=== PATIENT | female | born 1960 | race Caucasian/White ===

== ENCOUNTER 2016-10-19 01:03 | Inpatient (IN) | payer OTHER ==
--- NOTE | 2016-10-19 01:21 | ED ---
Overdose HPI - General Stated Complaint: Overdose Time Seen by Provider: 10/19/16 01:10 Source: patient, family Limitations: altered mental status - History of Present Illness Initial Comments: This patient is a 56-year-old woman who presents to be evaluated after she took an overdose at home. The patient is able to give some history but appears intoxicated. Patient states she had not been with her son and was feeling extremely depressed. She has history of previous suicide attempt. She states that she took all of her Seroquel, however we are presented with a bottle for bupropion. The patient also admits to drinking alcohol. The overdose occurred about 3 hours ago. MD Complaint: intentional overdose -: hour(s) Intent: suicide attempt How Overdose Was Discovered: family/friend present at time Context: Intentional Overdose: relationship problems Associated Symptoms: depression Treatments Prior to Arrival: none - Related Data Home Medications Medication Instructions Recorded Confirmed Gabapentin [Neurontin] 600 mg PO TID 10/19/16 10/21/16 QUEtiapine [SEROquel] 100 mg PO HS 10/19/16 10/21/16 Venlafaxine HCl ER [Effexor XR] 150 mg PO DAILY 10/19/16 10/21/16 Allergies Allergy/AdvReac Type Severity Reaction Status Date / Time No Known Allergies Allergy Verified 10/19/16 01:19 Review of Systems ROS Statement: Those systems with pertinent positive or pertinent negative responses have been documented in the HPI. ROS Other: All systems not noted in ROS Statement are negative. Limitations: ROS unobtainable due to patients medical condition Constitutional: Denies: fever Eyes: Denies: vision change Respiratory: Denies: cough, dyspnea Cardiovascular: Denies: chest pain Gastrointestinal: Denies: abdominal pain, vomiting Neurological: Denies: headache Past Medical History Additional Past Medical History / Comment(s): gastric ulcer, back pain History of Any Multi-Drug Resistant Organisms: None Reported Past Surgical History: Adenoidectomy, Back Surgery, Hernia Repair, Tonsillectomy , Tubal Ligation Additional Past Surgical History / Comment(s): Elena en Y for ulcer disease, nerve stimulator - since removed Past Anesthesia/Blood Transfusion Reactions: No Reported Reaction Past Psychological History: No Psychological Hx Reported Smoking Status: Current every day smoker Past Alcohol Use History: None Reported Past Drug Use History: None Reported General Exam General appearance: appears intoxicated Head exam: Present: atraumatic, normocephalic Eye exam: Present: EOMI, nystagmus ENT exam: Present: mucous membranes dry Neck exam: Present: normal inspection, full ROM. Absent: tenderness Respiratory exam: Present: normal lung sounds bilaterally. Absent: respiratory distress, wheezes, rales, rhonchi, stridor Cardiovascular Exam: Present: regular rate, normal rhythm, normal heart sounds. Absent: systolic murmur, diastolic murmur, rubs, gallop GI/Abdominal exam: Present: soft, hypoactive bowel sounds. Absent: distended, tenderness, guarding, rebound, mass Extremities exam: Present: normal inspection, normal capillary refill. Absent: pedal edema, calf tenderness Back exam: Present: normal inspection. Absent: CVA tenderness (R), CVA tenderness (L) Neurological exam: Present: alert, oriented X3. Absent: motor sensory deficit Skin exam: Present: warm, dry, intact, normal color. Absent: rash Course Vital Signs 10/19/16 10/19/16 10/19/16 01:10 01:24 02:19 Temperature 96.9 F L Pulse Rate 83 70 79 Respiratory 12 18 20 Rate Blood Pressure 68/37 77/47 83/45 O2 Sat by Pulse 89 L 97 100 Oximetry 10/19/16 10/19/16 10/19/16 02:51 03:56 04:17 Temperature Pulse Rate 79 67 75 Respiratory 18 18 18 Rate Blood Pressure 101/55 102/56 103/69 O2 Sat by Pulse 99 97 97 Oximetry 10/19/16 10/19/16 10/19/16 05:14 06:14 06:52 Temperature Pulse Rate 86 86 94 Respiratory 18 18 18 Rate Blood Pressure 92/54 107/60 93/50 O2 Sat by Pulse 97 96 97 Oximetry 10/19/16 10/19/16 07:13 07:51 Temperature 96.7 F L 97.0 F L Pulse Rate 97 92 Respiratory 18 18 Rate Blood Pressure 102/54 106/58 O2 Sat by Pulse 90 L 96 Oximetry - Reevaluation(s) Reevaluation #1: 10/19/16 05:57 I discussed the patient's repeat EKG with poison control. The patient's QRS duration has increased from 112-116 ms, which they state is insignificant. The QTC has increased from 497 ms to 524 ms. The patient will be given calcium and magnesium for this. Medical Decision Making - Lab Data Result diagrams: 10/20/16 07:00 10/20/16 07:00 Lab Results 10/19/16 10/19/16 10/19/16 Range/Units 01:15 01:15 01:22 WBC 8.8 (3.8-10.6) k/uL RBC 4.74 (3.80-5.40) m/uL Hgb 13.1 (11.4-16.0) gm/dL Hct 38.8 (34.0-46.0) % MCV 81.9 (80.0-100.0) fL MCH 27.6 (25.0-35.0) pg MCHC 33.7 (31.0-37.0) g/dL RDW 13.6 (11.5-15.5) % Plt Count 292 (150-450) k/uL Neutrophils % 44 % Lymphocytes % 45 % Monocytes % 5 % Eosinophils % 2 % Basophils % 1 % Neutrophils # 3.9 (1.3-7.7) k/uL Lymphocytes # 3.9 (1.0-4.8) k/uL Monocytes # 0.5 (0-1.0) k/uL Eosinophils # 0.2 (0-0.7) k/uL Basophils # 0.1 (0-0.2) k/uL Sodium 138 (137-145) mmol/L Potassium 4.3 (3.5-5.1) mmol/L Chloride 109 H (98-107) mmol/L Carbon Dioxide 16 L (22-30) mmol/L Anion Gap 13 mmol/L BUN 23 H (7-17) mg/dL Creatinine 0.83 (0.52-1.04) mg/dL Est GFR (MDRD) Af Amer >60 (>60 ml/min/1.73 sqM) Est GFR (MDRD) Non-Af >60 (>60 ml/min/1.73 sqM) Glucose 103 H (74-99) mg/dL Plasma Lactic Acid Rene (0.7-2.0) mmol/L Calcium 9.2 (8.4-10.2) mg/dL Magnesium (1.6-2.3) mg/dL Total Bilirubin 0.6 (0.2-1.3) mg/dL AST 27 (14-36) U/L ALT 20 (9-52) U/L Alkaline Phosphatase 114 (38-126) U/L Total Protein 6.9 (6.3-8.2) g/dL Albumin 4.0 (3.5-5.0) g/dL Urine Color Colorless Urine Appearance Clear (Clear) Urine pH 5.0 (5.0-8.0) Ur Specific [place] 1.003 (1.001-1.035) Urine Protein Negative (Negative) Urine Glucose (UA) Negative (Negative) Urine Ketones Negative (Negative) Urine Blood Negative (Negative) Urine Nitrite Negative (Negative) Urine Bilirubin Negative (Negative) Urine Urobilinogen <2.0 (<2.0) mg/dL Ur Leukocyte Esterase Negative (Negative) Salicylates <1.0 mg/dL Urine Opiates Screen Not Detected (NotDetected) Ur Oxycodone Screen Not Detected (NotDetected) Urine Methadone Screen Not Detected (NotDetected) Ur Propoxyphene Screen Not Detected (NotDetected) Acetaminophen <10.0 ug/mL Ur Barbiturates Screen Not Detected (NotDetected) U Tricyclic Antidepress Not Detected (NotDetected) Ur Phencyclidine Scrn Not Detected (NotDetected) Ur Amphetamines Screen Not Detected (NotDetected) U Methamphetamines Scrn Not Detected (NotDetected) U Benzodiazepines Scrn Not Detected (NotDetected) Urine Cocaine Screen Not Detected (NotDetected) U Marijuana (THC) Screen Not Detected (NotDetected) Serum Alcohol 209 mg/dL 10/19/16 10/19/16 10/19/16 Range/Units 01:34 04:35 04:35 WBC (3.8-10.6) k/uL RBC (3.80-5.40) m/uL Hgb (11.4-16.0) gm/dL Hct (34.0-46.0) % MCV (80.0-100.0) fL MCH (25.0-35.0) pg MCHC (31.0-37.0) g/dL RDW (11.5-15.5) % Plt Count (150-450) k/uL Neutrophils % % Lymphocytes % % Monocytes % % Eosinophils % % Basophils % % Neutrophils # (1.3-7.7) k/uL Lymphocytes # (1.0-4.8) k/uL Monocytes # (0-1.0) k/uL Eosinophils # (0-0.7) k/uL Basophils # (0-0.2) k/uL Sodium 144 (137-145) mmol/L Potassium 4.1 (3.5-5.1) mmol/L Chloride 116 H (98-107) mmol/L Carbon Dioxide 20 L (22-30) mmol/L Anion Gap 8 mmol/L BUN 20 H (7-17) mg/dL Creatinine 0.73 (0.52-1.04) mg/dL Est GFR (MDRD) Af Amer >60 (>60 ml/min/1.73 sqM) Est GFR (MDRD) Non-Af >60 (>60 ml/min/1.73 sqM) Glucose 89 (74-99) mg/dL Plasma Lactic Acid Rene 2.2 H* 1.9 (0.7-2.0) mmol/L Calcium 8.3 L (8.4-10.2) mg/dL Magnesium 1.9 (1.6-2.3) mg/dL Total Bilirubin 0.5 (0.2-1.3) mg/dL AST 22 (14-36) U/L ALT 23 (9-52) U/L Alkaline Phosphatase 98 (38-126) U/L Total Protein 6.0 L (6.3-8.2) g/dL Albumin 3.4 L (3.5-5.0) g/dL Urine Color Urine Appearance (Clear) Urine pH (5.0-8.0) Ur Specific [place] (1.001-1.035) Urine Protein (Negative) Urine Glucose (UA) (Negative) Urine Ketones (Negative) Urine Blood (Negative) Urine Nitrite (Negative) Urine Bilirubin (Negative) Urine Urobilinogen (<2.0) mg/dL Ur Leukocyte Esterase (Negative) Salicylates mg/dL Urine Opiates Screen (NotDetected) Ur Oxycodone Screen (NotDetected) Urine Methadone Screen (NotDetected) Ur Propoxyphene Screen (NotDetected) Acetaminophen ug/mL Ur Barbiturates Screen (NotDetected) U Tricyclic Antidepress (NotDetected) Ur Phencyclidine Scrn (NotDetected) Ur Amphetamines Screen (NotDetected) U Methamphetamines Scrn (NotDetected) U Benzodiazepines Scrn (NotDetected) Urine Cocaine Screen (NotDetected) U Marijuana (THC) Screen (NotDetected) Serum Alcohol mg/dL - EKG Data -: EKG Interpreted by Me EKG shows normal: sinus rhythm, axis, intervals (Normal), QRS complexes (There is a right bundle branch block pattern), ST-T waves (Normal) Rate: normal (Rate 82 bpm) Disposition Clinical Impression: Drug overdose, intentional, Altered mental status, Alcohol intoxication delirium, Depression Disposition: ADMITTED IP TO THIS [facility] Condition: Serious
[2016-10-19] MEDS ORDERED: SODIUM CHLORIDE 0.9% 1,000 ML IV ONE ×2 (01:26→04:04)
[2016-10-19 01:31] LABS: Appearance,Urine Clear (Clear); Bilirubin,Urine Negative (Negative); Glucose,Urine (UA) Negative (Negative); Ketones,Urine Negative (Negative); Leukocyte Esterase,Urine Negative (Negative); Nitrite,Urine Negative (Negative); Protein,Urine Negative (Negative); Specific Gravity,Urine 1.003 (1.001-1.035); UA Billing (MACRO vs. MICRO) CHEM; Urobilinogen,Urine <2.0 mg/dL (<2.0)
[2016-10-19 01:31] LABS: Basophils # (A) 0.1 k/uL (0-0.2); Basophils % (A) 1 %; CH 26.9; Eosinophils # (A) 0.2 k/uL (0-0.7); Eosinophils % (A) 2 %; HCT 38.8 % (34.0-46.0); HDW 2.28; HGB 13.1 gm/dL (11.4-16.0); Luc # (Auto) 0.28; Luc % (Auto) 3; Lymphocytes # (A) 3.9 k/uL (1.0-4.8); Lymphocytes % (A) 45 %; MCH 27.6 pg (25.0-35.0); MCHC 33.7 g/dL (31.0-37.0); MCV 81.9 fL (80.0-100.0); Mean Platelet Volume 6.5; Monocytes # (A) 0.5 k/uL (0-1.0); Monocytes % (A) 5 %; Neutrophils # (A) 3.9 k/uL (1.3-7.7); Neutrophils % (A) 44 %; RBC 4.74 m/uL (3.80-5.40); RDW 13.6 % (11.5-15.5); WBC 8.8 k/uL (3.8-10.6); WBC (Perox) 8.79
[2016-10-19 01:47] LABS: ALT 20 U/L (9-52); AST 27 U/L (14-36); Acetaminophen <10.0 ug/mL; Alkaline Phosphatase 114 U/L (38-126); Anion Gap 13 mmol/L; Blood Urea Nitrogen 23 mg/dL (7-17); Calcium 9.2 mg/dL (8.4-10.2); Carbon Dioxide 16 mmol/L (22-30); Chloride 109 mmol/L (98-107); Glucose 103 mg/dL (74-99); Non-African American GFR(MDRD) >60 (>60 ml/min/1.73 sqM); Potassium 4.3 mmol/L (3.5-5.1); Salicylate <1.0 mg/dL; Sodium 138 mmol/L (137-145); Total Bilirubin 0.6 mg/dL (0.2-1.3); Total Protein 6.9 g/dL (6.3-8.2)
[2016-10-19 01:51] LABS: Alcohol 209 mg/dL
--- NOTE | 2016-10-19 02:03 | XR ---
EXAM: XR Chest, 1 View CLINICAL HISTORY: Reason: Mental status change TECHNIQUE: Frontal view of the chest. COMPARISON: No relevant prior studies available. FINDINGS: Lungs: Unremarkable. No consolidation. Pleural space: Unremarkable. No pneumothorax. Heart: Unremarkable. No cardiomegaly. Mediastinum: Unremarkable. Bones/joints: Unremarkable. IMPRESSION: No acute findings
[2016-10-19 05:01] LABS: ALT 23 U/L (9-52); AST 22 U/L (14-36); Alkaline Phosphatase 98 U/L (38-126); Anion Gap 8 mmol/L; Blood Urea Nitrogen 20 mg/dL (7-17); Calcium 8.3 mg/dL (8.4-10.2); Carbon Dioxide 20 mmol/L (22-30); Chloride 116 mmol/L (98-107); Glucose 89 mg/dL (74-99); Magnesium 1.9 mg/dL (1.6-2.3); Non-African American GFR(MDRD) >60 (>60 ml/min/1.73 sqM); Potassium 4.1 mmol/L (3.5-5.1); Sodium 144 mmol/L (137-145); Total Bilirubin 0.5 mg/dL (0.2-1.3)
[2016-10-19] MEDS ORDERED: CALCIUM GLUCONATE 1,000 MG in SODIUM CHLORIDE 0.9% 100 ML IVPB ONE (05:56)
[2016-10-19] MEDS: MAGNESIUM SULFATE-D5W PMX 1 GM in DEXTROSE/WATER 1 100ML.BAG IVPB SCH ×2 (06:23→07:26)
[2016-10-19] MEDS ORDERED: NALOXONE 0.4 MG/ML 1 ML VIAL IV PRN (06:55)
[2016-10-19 08:11] LABS: Glucose,Whole Blood 95 mg/dL (75-99)
[2016-10-19] MEDS ORDERED: LORazepam 2 MG/ML SYRINGE IV PRN (09:49)
[2016-10-19] MEDS ORDERED: SODIUM CHLORIDE 0.9% 1,000 ML IV SCH (10:00)
[2016-10-19] MEDS: PANTOPRAZOLE 40 MG/10 ML VIAL IVP SCH (10:37)
[2016-10-19] MEDS: ENOXAPARIN 40 MG/0.4 ML SYRINGE SQ SCH (10:38)
[2016-10-19 12:03] VITALS: BMI 30.1
--- NOTE | 2016-10-19 14:42 | P.CNPUL ---
History of Present Illness Consult date: 10/19/16 Requesting physician: Gillian Street Reason for consult: other (Drug overdose) Chief complaint: Altered mental status History of present illness: This is a 56-year-old female with history of depression, chronic back pain, gastric ulcer disease, previous gastric surgery for ulcer disease, patient was brought into the ER after she took an overdose of Seroquel and Wellbutrin at home. Exact amount is unknown, but apparently the patient had previous history of suicidal attempts, her overdose occurred apparently about 3 hours prior to arrival to ER. Patient was treated by the ER physician as per poison control recommendations, she did not require to be intubated in the ER, patient was also noted to have elevated alcohol level, alcohol intoxication was noted. Admitted to the ICU, and I was asked to see her on consultation. Patient was noted to be lethargic, able to protect her airways, arousable, in no form of respiratory distress. Review of Systems ROS unobtainable: due to mental status Past Medical History Additional Past Medical History / Comment(s): gastric ulcer, back pain History of Any Multi-Drug Resistant Organisms: None Reported Past Surgical History: Adenoidectomy, Back Surgery, Hernia Repair, Tonsillectomy , Tubal Ligation Additional Past Surgical History / Comment(s): Elena en Y for ulcer disease, nerve stimulator - since removed Past Anesthesia/Blood Transfusion Reactions: No Reported Reaction Past Psychological History: Depression Additional Psychological History / Comment(s): Pt has had 2 other suicide attempt (1969's & 2006)prior to this admission Smoking Status: Current every day smoker Past Alcohol Use History: Daily Additional Past Alcohol Use History / Comment(s): pt has been drinking 1 bottle of wine every day for 3mths Past Drug Use History: None Reported Medications and Allergies Home Medications Medication Instructions Recorded Confirmed Type Gabapentin [Neurontin] 300 mg PO PC-TID 10/19/16 10/19/16 History QUEtiapine [SEROquel] 100 mg PO HS 10/19/16 10/19/16 History Venlafaxine HCl ER [Effexor XR] 150 mg DAILY 10/19/16 10/19/16 History Allergies Allergy/AdvReac Type Severity Reaction Status Date / Time No Known Allergies Allergy Verified 10/19/16 01:19 Physical Exam Vitals: Vital Signs Temp Pulse Pulse Resp BP BP Pulse Ox 10/19/16 12:00 97.3 F L 88 18 98/66 100 10/19/16 11:00 88 18 97/63 100 10/19/16 10:03 87 20 95/62 10/19/16 09:08 83 116/55 10/19/16 09:00 20 10/19/16 08:10 97.5 F L 85 20 110/63 100 10/19/16 07:51 97.0 F L 92 18 106/58 96 10/19/16 07:13 96.7 F L 97 18 102/54 90 L 10/19/16 06:52 94 18 93/50 97 10/19/16 06:14 86 18 107/60 96 10/19/16 05:14 86 18 92/54 97 10/19/16 04:17 75 18 103/69 97 10/19/16 03:56 67 18 102/56 97 10/19/16 02:51 79 18 101/55 99 10/19/16 02:19 79 20 83/45 100 10/19/16 01:24 70 18 77/47 97 10/19/16 01:10 96.9 F L 83 12 68/37 89 L Intake and Output 10/18/16 10/19/16 10/19/16 22:59 06:59 14:59 Intake Total 525 Output Total 2350 Balance -1825 Intake: IV 50 NS 50 Intake, IV Titration 475 Amount Sodium Chloride 0.9% 1, 475 000 ml @ 125 mls/hr IV . Q8H [facility] Rx#:[id number] Output: Urine 2350 Other: Voiding Method Indwelling Catheter Weight 77.111 kg 77.111 kg Patient Weight 10/20/16 06:59 Weight 77.111 kg Physical Exam: Revealed a 56-year-old female, lethargic, in no form of respiratory distress. HEENT:[Neck is supple.] [No neck masses.] [No thyromegaly.] [No JVD.] Chest: [Clear throughout, no crackles, no rhonchi, no wheezes.] Cardiac Exam: [Normal S1 and S2, no S3 gallop, no murmur.] Abdomen: [Soft, nontender, no megaly, no rebound, no guarding, normal bowel sounds.] Extremities: [No clubbing, no edema, no cyanosis.] Neurological Exam: [Lethargic, arousable upon deep painful stimuli, confused, Results - Laboratory Findings CBC and BMP: 10/19/16 01:15 10/19/16 04:35 Abnormal lab findings: Abnormal Labs 10/19/16 10/19/16 10/19/16 01:15 01:34 04:35 Chloride 109 H 116 H Carbon Dioxide 16 L 20 L BUN 23 H 20 H Glucose 103 H Plasma Lactic Acid Rene 2.2 H* Calcium 8.3 L Total Protein 6.0 L Albumin 3.4 L - Diagnostic Findings Chest x-ray: image reviewed (No acute process was noted on the chest x-ray.) Assessment and Plan Plan: Impression: Acute multiple drug overdose and acute alcohol intoxication. History of depression and suspect suicidal attempt. Recommendation: Continue present treatment plan as per the recommendation of poison control, continue to monitor in the ICU, IV fluids were ordered, continue to monitor for cardiac arrhythmia, GI and DVT prophylaxis ordered, initiate psychiatric consultation upon awakening, keep on suicidal precautions. We'll continue to follow. Time with Patient: Greater than 30
[2016-10-19] MEDS: SODIUM CHLORIDE 0.45% 1,000 ML IV SCH (17:36)
--- NOTE | 2016-10-19 21:37 | HP ---
DATE OF ADMISSION: 10/19/2016 56-year-old admitted after overdose on Seroquel and Wellbutrin. Patient has multiple suicide attempts in the past. Patient overdosed around midnight today. Patient will be watched. Patient is awake, but does not answer much of my questions. Patient needs to be watched to QT prolongation which is not prolonged at this point of time and also seizures with the above mentioned medications. Patient probably can be transferred out of the ICU . Need to be monitored in a telemetry unit at this point of time. Patient is not in respiratory distress. Patient is awake, unable to, but not answering my questions. Review of systems unable to obtain. The patient is definitely confused. PAST MEDICAL HISTORY: Chronic back pain. Peptic ulcer disease . Adenoidectomy. Back surgery, hernia repair, tonsillectomy, tubal ligation surgery, depression. SOCIAL HISTORY: The patient does smoke. Drinks about one bottle of wine per day. Drug abuse history is unknown. It is not documented here. Home medications: 1. Gabapentin. 2. Seroquel. 3. Venlafaxine. ALLERGIES: No known drug allergies. PHYSICAL EXAMINATION: Temperature 97.5, pulse of 92, respiratory rate of 18, blood pressure is 106/58, saturating at 100% on 3 liters of O2 by nasal cannula. GENERAL: The patient is alert and unable to assess orientation. HEENT: Pupils are round and equally reacting to light. EOMI. No scleral icterus. No conjunctival pallor. Normocephalic, atraumatic. No pharyngeal erythema. No thyromegaly. CARDIOVASCULAR: S1 and S2 present. No murmurs, rubs, or gallops. PULMONARY: Chest is clear to auscultation, no wheezing or crackles. ABDOMEN: Soft, nontender, nondistended, normoactive bowel sounds. No palpable organomegaly. MUSCULOSKELETAL: No joint swelling or deformity. EXTREMITIES: No cyanosis, clubbing, or pedal edema. NEUROLOGICAL: Moving all 4 limbs, does not appear to have any focal neurological deficits, the patient is definitely confused. SKIN: No rashes. LABORATORY DATA: CBC and BMP are abnormal for elevated lactic acid of 2.2. Patient is on IV normal saline, although her chloride and sodium are elevated. Because of which I will switch her over to half normal saline. Serum alcohol level was elevated. ASSESSMENT AND PLAN: 1. Drug overdose. Multiple drug overdose and patient can probably can transferred out of ICU. The needs to be on court recording monitor. Needs to be watched for seizure precautions. 2. Suicidal ideation. 3. Depression. 4. Hyperchloremia I will switch IV fluids to half normal saline. 5. Patient needs to be on seizure precautions. 6. Need to monitor QT. 7. Alcohol abuse. We will watch for any withdrawals. Patient will be on Ativan, CIWA protocol if she has any withdrawals.
[2016-10-19 22:46] LABS: Glucose,Whole Blood 71 mg/dL (75-99)
[2016-10-20 00:18] LABS: Glucose,Whole Blood 72 mg/dL (75-99)
[2016-10-20] MEDS: SODIUM CHLORIDE 0.45% 1,000 ML IV SCH ×2 (03:45→18:16)
[2016-10-20 07:42] LABS: Basophils % (A) 0 %; CH 26.1; CHCM 30.6; Eosinophils # (A) 0.2 k/uL (0-0.7); Eosinophils % (A) 3 %; HCT 36.3 % (34.0-46.0); HDW 2.15; HGB 11.3 gm/dL (11.4-16.0); Hypochromasia Slight; Luc # (Auto) 0.08; Luc % (Auto) 1; Lymphocytes # (A) 1.1 k/uL (1.0-4.8); Lymphocytes % (A) 18 %; MCH 26.6 pg (25.0-35.0); MCV 85.6 fL (80.0-100.0); Mean Platelet Volume 6.5; Monocytes # (A) 0.4 k/uL (0-1.0); Monocytes % (A) 6 %; Neutrophils # (A) 4.4 k/uL (1.3-7.7); Neutrophils % (A) 72 %; RBC 4.24 m/uL (3.80-5.40); RDW 13.7 % (11.5-15.5); WBC 6.2 k/uL (3.8-10.6); WBC (Perox) 6.21
[2016-10-20 07:47] LABS: ALT 23 U/L (9-52); AST 22 U/L (14-36); Alkaline Phosphatase 88 U/L (38-126); Anion Gap 7 mmol/L; Blood Urea Nitrogen 8 mg/dL (7-17); Calcium 8.6 mg/dL (8.4-10.2); Carbon Dioxide 23 mmol/L (22-30); Chloride 111 mmol/L (98-107); Glucose 69 mg/dL (74-99); Magnesium 2.2 mg/dL (1.6-2.3); Non-African American GFR(MDRD) >60 (>60 ml/min/1.73 sqM); Potassium 4.2 mmol/L (3.5-5.1); Sodium 141 mmol/L (137-145); Total Bilirubin 0.8 mg/dL (0.2-1.3); Total Protein 6.1 g/dL (6.3-8.2)
[2016-10-20 08:08] LABS: Glucose,Whole Blood 70 mg/dL (75-99)
[2016-10-20] MEDS: ENOXAPARIN 40 MG/0.4 ML SYRINGE SQ SCH (08:51)
[2016-10-20] MEDS: PANTOPRAZOLE 40 MG/10 ML VIAL IVP SCH (08:51)
--- NOTE | 2016-10-20 11:36 | CT ---
EXAMINATION TYPE: CT brain wo con DATE OF EXAM: 10/20/2016 COMPARISON: Prior head CT 07/04/2012 HISTORY: Altered mental changes CT DLP: 961 mGycm Automated exposure control for dose reduction was used. FINDINGS: There is no acute intracranial hemorrhage, mass effect, or midline shift identified. The ventricles and sulci are within normal limits in size. The globes are intact and the visualized sinuses are rem arkable for inflammatory change in the sphenoid, bilateral maxillary sinuses, ethmoid air cells front al sinus, some inflammatory change present in the mastoids on the right.. IMPRESSION: No acute intracranial hemorrhage, mass effect, or midline shift is seen. Sinus disease.
[2016-10-20 12:29] LABS: Glucose,Whole Blood 72 mg/dL (75-99)
[2016-10-20] MEDS ORDERED: HALOPERIDOL LACTATE 5 MG/ML 1 ML VIAL IM PRN (13:17)
--- NOTE | 2016-10-20 13:36 | P.PN ---
Subjective Principal diagnosis: Multiple drugs overdose, suicidal attempt. This is a 56-year-old female with history of depression, chronic back pain, gastric ulcer disease, previous gastric surgery for ulcer disease, patient was brought into the ER after she took an overdose of Seroquel and Wellbutrin at home. Exact amount is unknown, but apparently the patient had previous history of suicidal attempts, her overdose occurred apparently about 3 hours prior to arrival to ER. Patient was treated by the ER physician as per poison control recommendations, she did not require to be intubated in the ER, patient was also noted to have elevated alcohol level, alcohol intoxication was noted. Admitted to the ICU, and I was asked to see her on consultation. Patient was noted to be lethargic, able to protect her airways, arousable, in no form of respiratory distress. Patient was reevaluated today on 10/20/2016, patient remains extremely confused, obtunded, and unable to follow any instructions, has been seems to be concerned about the fact that she is not showing improvement in her mental status over the last 24 hours. Patient was transferred out of the ICU yesterday by her admitting physician, she was hemodynamically stable, however I'm still concerned about her overall neurological status, and I recommended a CT of the brain I also recommended a neurological evaluation. CT showed no evidence of hemorrhage, no mass effect, and no midline shift. There is however some sinus disease involving maxillary sinuses and ethmoid sinuses. As well as sphenoid sinuses. Metabolically, all labs were noted to be normal including normal CBC and normal basic metabolic profile normal liver profile. Blood sugar seems to be running in the 70s all along. Objective - Vital Signs Vital signs: Vital Signs Temp 98.7 F 10/20/16 07:00 Pulse 84 10/20/16 07:00 Resp 19 10/20/16 07:00 BP 143/79 10/20/16 07:00 Pulse Ox 95 10/20/16 08:06 Intake & Output 10/19/16 10/20/16 10/20/16 18:59 06:59 18:59 Intake Total 1100 200 Output Total 3015 1979 Balance -1914 Weight 77.111 kg Intake: IV 50 NS 50 Intake, IV Titration 1050 200 Amount Sodium Chloride 0.45% 1, 200 200 000 ml @ 100 mls/hr IV . Q10H [facility] Rx#:[id number] Sodium Chloride 0.9% 1, 850 000 ml @ 125 mls/hr IV . Q8H [facility] Rx#:[id number] Oral 0 Output: Urine 3015 1980 Other: Voiding Method Indwelling Catheter Indwelling Catheter - Exam Physical Exam: Revealed a 56-year-old female, obtunded in no form of respiratory distress. HEENT:[Neck is supple.] [No neck masses.] [No thyromegaly.] [No JVD.] Chest: [Clear throughout, no crackles, no rhonchi, no wheezes.] Cardiac Exam: [Normal S1 and S2, no S3 gallop, no murmur.] Abdomen: [Soft, nontender, no megaly, no rebound, no guarding, normal bowel sounds.] Extremities: [No clubbing, no edema, no cyanosis.] Neurological Exam: [Obtunded, arousable upon deep painful stimuli, confused, unable to follow any simple instructions. - Labs CBC & Chem 7: 10/20/16 07:00 10/20/16 07:00 Labs: Abnormal Lab Results - Last 24 Hours (Table) 10/19/16 10/20/16 10/20/16 Range/Units 22:43 00:15 07:00 Hgb 11.3 L (11.4-16.0) gm/dL Chloride (98-107) mmol/L Glucose (74-99) mg/dL POC Glucose (mg/dL) 71 L 72 L (75-99) mg/dL Total Protein (6.3-8.2) g/dL Albumin (3.5-5.0) g/dL 10/20/16 10/20/16 10/20/16 Range/Units 07:00 08:06 12:26 Hgb (11.4-16.0) gm/dL Chloride 111 H (98-107) mmol/L Glucose 69 L (74-99) mg/dL POC Glucose (mg/dL) 70 L 72 L (75-99) mg/dL Total Protein 6.1 L (6.3-8.2) g/dL Albumin 3.4 L (3.5-5.0) g/dL Assessment and Plan Plan: Impression: Acute multiple drug overdose and acute alcohol intoxication. Acute metabolic encephalopathy, rule out CVA, hence CT of the brain was ordered , and showed no evidence of CVA. Neurological consultation is pending. History of depression and suspect suicidal attempt. Patient will be seen by psychiatry on consultation hopefully today. However her mental status is poor to have appropriate psych consultation at this point. Recommendation: Continue present treatment plan , neurologic consultation was initiated, CT of the brain was ordered, will follow on when necessary basis. Discussed her condition with at bedside. Time with Patient: Less than 30
--- NOTE | 2016-10-20 13:58 | P.CN ---
Psychiatric Consult - . Consult date: 10/20/16 Consult:: I reviewed the medical record and attempted to interview Ms. Clifton. She was unresponsive. Her was at the bedside and stated that she told him, and this admission, that she had overdosed with Seroquel. He stated she has a history of depression and attempted suicide once before. He believes she is more distressed over conflicts with their son. I was unable to complete a full psychiatric assessment. Please reconsult when she is medically stable. 10/20/16 13:56
--- NOTE | 2016-10-20 15:15 | P.CNNES ---
History of Present Illness Consult date: 10/20/16 History of Present Illness: The patient is a 56-year-old right-handed white female was admitted to the hospital on 10/19/2016 with drug overdose. She was in the ICU and transferred to regular floor with telemetry monitoring. History is obtained from the patient's was at her bedside. He reports that patient has been feeling very depressed. She has a history of depression and previous suicide attempts. On Thursday evening she overdosed and told her that she had taken [address] On her way to the hospital she grabbed also an empty Wellbutrin bottle. Patient has been lethargic lethargic and nonverbal. She was transferred out of the ICU yesterday. Patient is awake but unable to respond to any verbal questioning or follow any commands. Patient 's reports that she has also been drinking over 1 bottle of wine a day for the last several weeks. Neurology is requested to see the patient today regarding altered mental status. Review of Systems ROS unobtainable: due to mental status Past Medical History Additional Past Medical History / Comment(s): gastric ulcer, back pain History of Any Multi-Drug Resistant Organisms: None Reported Past Surgical History: Adenoidectomy, Back Surgery, Hernia Repair, Tonsillectomy , Tubal Ligation Additional Past Surgical History / Comment(s): Elena en Y for ulcer disease, nerve stimulator - since removed Past Anesthesia/Blood Transfusion Reactions: No Reported Reaction Past Psychological History: Depression Additional Psychological History / Comment(s): Pt has had 2 other suicide attempt (1969's & 2006)prior to this admission Smoking Status: Current every day smoker Past Alcohol Use History: Daily Additional Past Alcohol Use History / Comment(s): pt has been drinking 1 bottle of wine every day for 3mths Past Drug Use History: None Reported Medications and Allergies Home Medications Medication Instructions Recorded Confirmed Type Gabapentin [Neurontin] 300 mg PO PC-TID 10/19/16 10/19/16 History QUEtiapine [SEROquel] 100 mg PO HS 10/19/16 10/19/16 History Venlafaxine HCl ER [Effexor XR] 150 mg DAILY 10/19/16 10/19/16 History Allergies Allergy/AdvReac Type Severity Reaction Status Date / Time No Known Allergies Allergy Verified 10/19/16 01:19 Physical Examination - Vital Signs Vital Signs: Vital Signs Temp Pulse Pulse Pulse Resp BP BP 10/20/16 08:06 10/20/16 07:00 98.7 F 84 19 143/79 10/20/16 02:09 98.2 F 80 20 135/91 10/19/16 23:45 98.5 F 86 20 105/68 10/19/16 21:25 98.3 F 82 20 150/89 10/19/16 20:30 87 21 117/65 10/19/16 20:00 97.7 F 84 140/81 10/19/16 19:30 92 144/74 10/19/16 19:18 92 144/74 10/19/16 19:00 89 18 143/76 10/19/16 18:00 92 18 142/67 10/19/16 17:00 88 20 125/79 10/19/16 16:00 97.5 F L 86 18 126/65 10/19/16 15:42 Pulse Ox 10/20/16 08:06 95 10/20/16 07:00 95 10/20/16 02:09 100 10/19/16 23:45 92 L 10/19/16 21:25 99 10/19/16 20:30 99 10/19/16 20:00 98 10/19/16 19:30 99 10/19/16 19:18 99 10/19/16 19:00 99 10/19/16 18:00 100 10/19/16 17:00 99 10/19/16 16:00 100 10/19/16 15:42 99 Intake and Output 10/20/16 10/20/16 10/20/16 06:59 14:59 22:59 Intake Total 0 Output Total 1700 Balance -1700 Intake: Oral 0 Output: Urine 1700 - Constitutional General appearance: average body habitus - Respiratory Respiratory: lungs clear - Cardiovascular Cardiovascular: regular rate - Neurologic Mental status the patient was awake and unresponsive to verbal stimuli. Her head was turned to the right and she did have some startle when approached but was nonverbal and did not follow any commands. Cranial nerve examination: face symmetric, tongue midline Detailed motor examination: grossly full strength in all extremities - Psychiatric Psychiatric: agitated Results - Laboratory Findings CBC and BMP: 10/20/16 07:00 10/20/16 07:00 Abnormal Lab Findings: Abnormal Labs 10/19/16 10/19/16 10/19/16 01:15 01:34 04:35 Hgb Chloride 109 H 116 H Carbon Dioxide 16 L 20 L BUN 23 H 20 H Glucose 103 H POC Glucose (mg/dL) Plasma Lactic Acid Rene 2.2 H* Calcium 8.3 L Total Protein 6.0 L Albumin 3.4 L 10/19/16 10/20/16 10/20/16 22:43 00:15 07:00 Hgb 11.3 L Chloride Carbon Dioxide BUN Glucose POC Glucose (mg/dL) 71 L 72 L Plasma Lactic Acid Rene Calcium Total Protein Albumin 10/20/16 10/20/16 10/20/16 07:00 08:06 12:26 Hgb Chloride 111 H Carbon Dioxide BUN Glucose 69 L POC Glucose (mg/dL) 70 L 72 L Plasma Lactic Acid Rene Calcium Total Protein 6.1 L Albumin 3.4 L Assessment and Plan (1) Altered mental status Status: Acute Code(s): R41.82 - ALTERED MENTAL STATUS, UNSPECIFIED (2) Drug overdose, intentional Status: Acute Code(s): T50.902A - POISONING BY UNSP DRUG/MEDS/BIOL SUBST, SELF -HARM, INIT (3) Depression Status: Acute Code(s): F32.9 - MAJOR DEPRESSIVE DISORDER, SINGLE EPISODE, UNSPECIFIED (4) Alcohol intoxication delirium Status: Acute Plan: The patient is a 56-year-old woman with depression who was admitted with suicide attempt. She had drug overdose with Seroquel and possible Wellbutrin as well. She was treated in the emergency room and transferred to ICU. Yesterday evening she was transferred out of ICU and neurology is requested to see the patient today regarding altered mental status. The patient is unable to verbalize or give any history. History is obtained from the patient's . The patient had a CT of the brain this morning which did not show any acute abnormality. Patient is being watched for QT prolongation. We will check EEG to rule out underlying seizure activity. Continue close monitoring. Condition guarded.
[2016-10-20 17:33] LABS: Glucose,Whole Blood 68 mg/dL (75-99)
[2016-10-20] MEDS ORDERED: DEXTROSE 10 % IN WATER 250 ML IV STA (18:27)
[2016-10-20 18:32] LABS: Glucose,Whole Blood 116 mg/dL (75-99)
[2016-10-20 21:07] LABS: Glucose,Whole Blood 71 mg/dL (75-99)
[2016-10-21] MEDS: SODIUM CHLORIDE 0.45% 1,000 ML IV SCH ×3 (00:19→21:33)
[2016-10-21 06:41] LABS: Glucose,Whole Blood 83 mg/dL (75-99)
--- NOTE | 2016-10-21 07:36 | PN ---
Patient is still nonverbal but arousable and awake, but excessively sleepy. Neurology was consulted because of these symptoms. CT of the head was obtained, which was negative. REVIEW OF SYSTEMS: Unable to obtain at this point of time. Medications were reviewed. PHYSICAL EXAMINATION: VITAL SIGNS: Temperature 98.2, pulse of 83, respiratory rate of 16, blood pressure is 131/101. Saturating at 98% on 2-L of O2 nasal cannula. GENERAL: Patient is arousable, unable to assess orientation, excessively sleepy, nonverbal at this point of time. HEENT: Pupils are round and equally reacting to light. EOMI. No scleral icterus. No conjunctival pallor. Normocephalic, atraumatic. No pharyngeal erythema. No thyromegaly. CARDIOVASCULAR: S1 and S2 present. No murmurs, rubs, or gallops. PULMONARY: Chest is clear to auscultation, no wheezing or crackles. ABDOMEN: Soft, nontender, nondistended, normoactive bowel sounds. No palpable organomegaly. MUSCULOSKELETAL: No joint swelling or deformity. EXTREMITIES: No cyanosis, clubbing, or pedal edema. NEUROLOGICAL: Moving all the 4 limbs and does not appear to have any focal deficit, appears to be confused, but mostly nonverbal and neurology is evaluating the patient. SKIN: No rashes. LABORATORY DATA: Hyperchloremia due to IV fluids. ASSESSMENT AND PLAN: 1. Drug overdose on multiple drugs. Will continue to monitor. 2. Toxic encephalopathy due to drug overdose on Seroquel and bupropion. Neurology is evaluating the patient because of her mental status issues. 3. Depression. 4. Hyperchloremia, which is improving at this point of time. Continue to monitor. 5. Acute alcohol abuse. Will monitor for alcohol withdrawal and patient will be on alcohol withdrawal percussions although patient does not have any such withdrawals at this point of time. Wellbutrin is probably not a great medication in alcoholics.
[2016-10-21] MEDS: PANTOPRAZOLE 40 MG/10 ML VIAL IVP SCH (08:54)
[2016-10-21] MEDS: ENOXAPARIN 40 MG/0.4 ML SYRINGE SQ SCH (08:54)
--- NOTE | 2016-10-21 10:24 | EEG ---
DATE OF SERVICE: 10/20/[address] Street. INTERPRETING PHYSICIAN: Dr. Rangel Simental. INDICATIONS FOR EXAMINATION: This patient is a 56-year-old female admitted with drug overdose. The patient remains obtunded and hard to arouse. AGE: 56Y EEG FINDINGS: A routine 21-channel, awake digital EEG recording was accomplished utilizing the 10 to 20 international system with bipolar and referential montages. The background activity in the most alert resting state consists of a low to medium amplitude, poorly developed and poorly sustained 5 to 6 Hz activity over the posterior head regions. This posterior rhythm attenuates minimally to eye opening. There is a small amount of low amplitude 18 to 20 Hz beta activity seen maximally over the anterior head regions. Muscle and movement artifact was observed on several occasions during the tracing. Hyperventilation was not performed. Photic stimulation at flash frequencies of 2 to 30 Hz produced a minimal occipital driving response. No epileptiform discharges were seen. IMPRESSION: This EEG is moderately abnormal in a diffuse fashion due to slowing of the EEG background. The EEG failed to reveal any focal, lateralized or epileptiform abnormalities. Clinical correlation is recommended.
--- NOTE | 2016-10-21 10:50 | P.CRDCN ---
History of Present Illness Consult date: 10/21/16 Chief complaint: Change in mental status History of present illness: This is a pleasant 56-year-old female patient with no prior cardiac history was admitted to the hospital with a change in mental status. The patient was admitted to the hospital after suicidal attempt using medications. The patient took Seroquel and her found an empty bottle at home. She had significant change in mental status which has been getting better over the last few days. Currently she still slightly confused. No symptoms of chest pain or discomfort or difficulty breathing. The patient is not aware of any prior cardiac history and never seen any tread builder in the past. She doesn't smoke though. We get involved in the care of the patient because of abnormal EKG. I reviewed the patient's EKG and that showed sinus rhythm with R BBB. I could not see any acute changes on the EKG. The QT interval seems to be within normal limits at this point. At this point, I would not recommend any further cardiac workup beside daily EKG on the patient. We'll continue monitor for prolonged QT. Continue monitoring the electrolytes. Replace any deficiencies in potassium and magnesium. Avoid any medication which can prolong the QT Past Medical History Additional Past Medical History / Comment(s): gastric ulcer, back pain History of Any Multi-Drug Resistant Organisms: None Reported Past Surgical History: Adenoidectomy, Back Surgery, Hernia Repair, Tonsillectomy , Tubal Ligation Additional Past Surgical History / Comment(s): Elena en Y for ulcer disease, nerve stimulator - since removed Past Anesthesia/Blood Transfusion Reactions: No Reported Reaction Past Psychological History: Depression Additional Psychological History / Comment(s): Pt has had 2 other suicide attempt ( & 2006)prior to this admission Smoking Status: Current every day smoker Past Alcohol Use History: Daily Additional Past Alcohol Use History / Comment(s): pt has been drinking 1 bottle of wine every day for 3mths Past Drug Use History: None Reported Medications and Allergies Home Medications Medication Instructions Recorded Confirmed Type Gabapentin [Neurontin] 300 mg PO PC-TID 10/19/16 10/19/16 History QUEtiapine [SEROquel] 100 mg PO HS 10/19/16 10/19/16 History Venlafaxine HCl ER [Effexor XR] 150 mg PO DAILY 10/19/16 10/21/16 History Allergies Allergy/AdvReac Type Severity Reaction Status Date / Time No Known Allergies Allergy Verified 10/19/16 01:19 Physical Exam Vitals: Vital Signs Temp Pulse Resp BP Pulse Ox 10/21/16 07:00 97.7 F 103 H 16 123/86 93 L 10/20/16 23:00 96.7 F L 76 20 150/84 98 10/20/16 16:00 16 10/20/16 15:00 98.2 F 83 16 131/101 98 Intake and Output 10/20/16 10/21/16 10/21/16 22:59 06:59 14:59 Intake Total 0 0 Output Total 1200 Balance 0 -1200 Intake: Oral 0 0 Output: Urine 1200 Other: Voiding Method Indwelling Catheter # Voids 0 0 # Bowel Movements 0 - Constitutional General appearance: no acute distress - Respiratory Respiratory: bilateral: CTA - Cardiovascular Rhythm: regular Heart sounds: normal: S1, S2 Results 10/20/16 07:00 10/20/16 07:00 Cardiac Enzymes 10/20/16 10/20/16 Range/Units 15:59 21:58 Troponin I <0.012 <0.012 (0.000-0.034) ng/mL Current Medications Generic Name Dose Route Start Last Admin Trade Name Freq PRN Reason Stop Dose Admin Enoxaparin Sodium 40 mg 10/19/16 10:00 10/21/16 08:54 Lovenox SQ 40 mg DAILY JONNATHAN Administration Haloperidol Lactate 3 mg 10/20/16 13:17 Haldol IM Q8HR PRN Agitation or Acute Psychosis Sodium Chloride 1,000 mls @ 100 mls/hr 10/19/16 16:30 10/21/16 00:19 Saline 0.45% IV 100 mls/hr .Q10H JONANTHAN Administration Naloxone HCl 0.2 mg 10/19/16 06:55 Narcan IV Q2M PRN Opioid Reversal Nicotine 1 patch 10/21/16 10:45 Habitrol 21mg/24hr Patch TRANSDERM DAILY JONNATHAN Pantoprazole Sodium 40 mg 10/19/16 10:00 10/21/16 08:54 Protonix IVP 40 mg DAILY JONNATHAN Administration Intake and Output 10/20/16 10/21/16 10/21/16 22:59 06:59 14:59 Intake Total 0 0 Output Total 1200 Balance 0 -1200 Intake: Oral 0 0 Output: Urine 1200 Other: Voiding Method Indwelling Catheter # Voids 0 0 # Bowel Movements 0 10/20/16 07:00 10/20/16 07:00 Assessment and Plan Plan: Assessment #1 suicidal attempt using Seroquel #2 change in mental status which has been better #3 significant history of smoking #4 depression Plan #1 continue monitoring the EKG for prolonged QT #2 monitor the electrolytes and replace any deficiencies in potassium and magnesium #3 avoid any medication which can prolonged QT #4 follow-up with the patient
[2016-10-21 11:30] LABS: Glucose,Whole Blood 77 mg/dL (75-99)
[2016-10-21] MEDS: NICOTINE 21MG/24HR PATCH TRANSDERM SCH (11:57)
--- NOTE | 2016-10-21 12:17 | P.PN ---
Subjective Principal diagnosis: Multiple drug overdose with suicide attempt. This is a 56-year-old female with history of depression, chronic back pain, gastric ulcer disease, previous gastric surgery for ulcer disease, patient was brought into the ER after she took an overdose of Seroquel and Wellbutrin at home. Exact amount is unknown, but apparently the patient had previous history of suicidal attempts, her overdose occurred apparently about 3 hours prior to arrival to ER. Patient was treated by the ER physician as per poison control recommendations, she did not require to be intubated in the ER, patient was also noted to have elevated alcohol level, alcohol intoxication was noted. Admitted to the ICU, and I was asked to see her on consultation. Patient was noted to be lethargic, able to protect her airways, arousable, in no form of respiratory distress. Patient was reevaluated today on 10/20/2016, patient remains extremely confused, obtunded, and unable to follow any instructions, has been seems to be concerned about the fact that she is not showing improvement in her mental status over the last 24 hours. Patient was transferred out of the ICU yesterday by her admitting physician, she was hemodynamically stable, however I'm still concerned about her overall neurological status, and I recommended a CT of the brain I also recommended a neurological evaluation. CT showed no evidence of hemorrhage, no mass effect, and no midline shift. There is however some sinus disease involving maxillary sinuses and ethmoid sinuses. As well as sphenoid sinuses. Metabolically, all labs were noted to be normal including normal CBC and normal basic metabolic profile normal liver profile. Blood sugar seems to be running in the 70s all along. The patient is seen again today 10/21/2016 in follow-up on the regular medical floor. She continues to have altered mental status, hallucinations with intermittent periods of lucidity. She has been maintaining good O2 saturations in the low 90s on room air. She's been afebrile. Hemodynamically stable. The patient's is at the bedside and states she had 2 previous suicide attempts most recently approximately 10 years ago. He states this is the most serious of the events thus far. Psychiatry is following as well. Objective - Vital Signs Vital signs: Vital Signs Temp 97.7 F 10/21/16 07:00 Pulse 103 H 10/21/16 07:00 Resp 16 10/21/16 07:00 BP 123/86 10/21/16 07:00 Pulse Ox 93 L 10/21/16 07:00 Intake & Output 10/20/16 10/21/16 10/21/16 18:59 06:59 18:59 Intake Total 0 Output Total 1600 1200 Balance -1600 -1200 Intake: Oral 0 Output: Urine 1600 1200 Other: Voiding Method Indwelling Catheter # Voids 0 # Bowel Movements 0 - Exam Physical Exam: Revealed a 56-year-old female, obtunded in no form of respiratory distress. HEENT:[Neck is supple.] [No neck masses.] [No thyromegaly.] [No JVD.] Chest: [Clear throughout, no crackles, no rhonchi, no wheezes.] Cardiac Exam: [Normal S1 and S2, no S3 gallop, no murmur.] Abdomen: [Soft, nontender, no megaly, no rebound, no guarding, normal bowel sounds.] Extremities: [No clubbing, no edema, no cyanosis.] Neurological Exam: [Obtunded, arousable upon deep painful stimuli, confused, unable to follow any simple instructions. - Labs CBC & Chem 7: 10/20/16 07:00 10/20/16 07:00 Labs: Abnormal Lab Results - Last 24 Hours (Table) 10/20/16 10/20/16 10/20/16 Range/Units 12:26 17:24 18:29 POC Glucose (mg/dL) 72 L 68 L 116 H (75-99) mg/dL 10/20/16 Range/Units 21:01 POC Glucose (mg/dL) 71 L (75-99) mg/dL Assessment and Plan Plan: Impression: Acute multiple drug overdose and acute alcohol intoxication. Acute metabolic encephalopathy, rule out CVA, hence CT of the brain was ordered , and showed no evidence of CVA. Neurological consultation is pending. History of depression and suspect suicidal attempt. Plan: Patient was seen and evaluated by Dr. Emerson. She is currently stable from the pulmonary and critical care standpoint. She still has episodes of altered mental status which is being followed by psychiatry. We will follow with the patient on as-needed basis.
--- NOTE | 2016-10-21 14:28 | P.CN ---
Psychiatric Consult - . Consult date: 10/21/16 Consult:: SUBJECTIVE: I reviewed the medical record and interviewed Ms. Clifton. She is pleasant on approach but was unable to explain the reason for her presentation to the hospital. OBJECTIVE: She presented as a disheveled appearing 56-year-old female who was resting comfortably in bed. She maintained contact her children difficulty concentrating and attending to the interview. She had difficulty organizing her thoughts. She was oriented to person, knew the month was September but thought the year was 1975. We completed the [facility] Orientation Memory Concentration test. Her total weighted error score was 26. In general, the higher the weighted error score greater than cognitive impairment. She knew the month but did not know the year. She was able to register the memory phrase "Cj Cano, [address] [place] [address]." She was able to count backwards from 20-1 but she several errors when attempting to name the months of the year in reverse order (beginning with April). She was unable to estimate the current time correctly (within 1 hour actual time). She was unable to remember the memory phrase after the above distraction exercise as. ASSESSMENT: She is a 56-year-old female who [facility] following an intentional overdose of prescription psychotropic medication. She is alert and responsive today but markedly confused. She shows impairments in attention, concentration and memory. PLAN: She is still recovering from the overdose and appears to have elements of a delirium. She remains inappropriate for transfer to psychiatric unit at this time. 10/21/16 14:22
[2016-10-21 17:04] LABS: Glucose,Whole Blood 73 mg/dL (75-99)
--- NOTE | 2016-10-21 21:30 | P.PN ---
Subjective Principal diagnosis: Overdose The patient 56-year-old woman admitted to the hospital on 10/19/2016 with intentional drug overdose and altered mental status. Today she is sleeping but easily arousable and alert when awakened. She is answering questions appropriately. She reports that she overdosed on Seroquel and does not think she took Wellbutrin. She has a history of depression and previous suicide attempts. She denies any headache or focal weakness or numbness. She has been in bed and has not had a chance to get up or walk. She denied any hallucinations today but states she did have some yesterday. Objective - Vital Signs Vital signs: Vital Signs Temp 99.4 F 10/21/16 17:54 Pulse 92 10/21/16 17:54 Resp 16 10/21/16 17:54 BP 105/80 10/21/16 17:54 Pulse Ox 96 10/21/16 17:54 Intake & Output 10/21/16 10/21/16 10/22/16 06:59 18:59 06:59 Intake Total 0 0 Output Total 1200 750 Balance -1200 -750 Intake: Oral 0 0 Output: Urine 1200 750 Other: Voiding Method Indwelling Catheter Indwelling Catheter # Voids 0 # Bowel Movements 0 - Constitutional General appearance: Present: cooperative - EENT Eyes: Present: PERRLA ENT: Present: hearing grossly normal - Respiratory Respiratory: bilateral: CTA - Cardiovascular Rhythm: regular - Neurologic Neurologic Comment(s): Status she was awake alert oriented to person place and time she thought it was October however and she thought it was the first or second of October. She was able to add serial sevens and subtract. She was able to spell world forward and backward. She was able to recall what she had for dinner. There is no a aphasia or dysarthria. She was able to give her home address and phone number Neurologic: Present: CNII-XII intact - Musculoskeletal Musculoskeletal: Present: strength equal bilaterally - Psychiatric Psychiatric: Present: A&O x's 3 - Labs CBC & Chem 7: 10/20/16 07:00 10/20/16 07:00 Labs: Abnormal Lab Results - Last 24 Hours (Table) 10/21/16 Range/Units 17:03 POC Glucose (mg/dL) 73 L (75-99) mg/dL Assessment and Plan (1) Altered mental status Status: Acute Code(s): R41.82 - ALTERED MENTAL STATUS, UNSPECIFIED (2) Drug overdose, intentional Status: Acute Code(s): T50.902A - POISONING BY UNSP DRUG/MEDS/BIOL SUBST, SELF -HARM, INIT (3) Depression Status: Acute Code(s): F32.9 - MAJOR DEPRESSIVE DISORDER, SINGLE EPISODE, UNSPECIFIED (4) Alcohol intoxication delirium Status: Acute Plan: The patient is a 56-year-old woman who was admitted to the hospital hospital with intentional drug overdose. The patient has had altered mental status and today she is doing much better. She is oriented 3. Patient denies any significant complaints. There are no lateralizing signs on her examination. Her EEG showed general slowing yesterday but no seizure activity. She had a CT of the brain which was unremarkable.
[2016-10-21 21:35] LABS: Glucose,Whole Blood 78 mg/dL (75-99)
[2016-10-22 07:11] LABS: Glucose,Whole Blood 78 mg/dL (75-99)
[2016-10-22 07:14] VITALS: RESP 20
--- NOTE | 2016-10-22 08:15 | P.PN ---
Subjective Date of service 10/21/2016 Personal being dictated for Dr. Lancaster Interval history: This is a 56-year-old female admitted with toxic encephalopathy secondary to drug overdose on multiple drugs including Seroquel and bupropion, acute alcohol abuse and multiple other medical issues. Suicide precautions maintained with sitter at bedside. Remains strong D, slurred speech , dozing off during conversations. Confused to place and time but recognizes significant other. Maintained on gentle IV fluid hydration. Currently nothing by mouth, diet initiated. Afebrile, T-max 99.4. Evaluated by a neurology with recommendations noted. No seizure activity reported. Evaluated by psychiatry and patient will be transferred to mental health unit. Objective - Vital Signs Vital signs: Vital Signs Temp 99.4 F 10/21/16 17:54 Pulse 92 10/21/16 17:54 Resp 16 10/21/16 17:54 BP 105/80 10/21/16 17:54 Pulse Ox 96 10/21/16 17:54 Intake & Output 10/21/16 10/21/16 10/22/16 06:59 18:59 06:59 Intake Total 0 0 Output Total 1200 750 Balance -1200 -750 Intake: Oral 0 0 Output: Urine 1200 750 Other: Voiding Method Indwelling Catheter Indwelling Catheter # Voids 0 # Bowel Movements 0 - Exam PHYSICAL EXAM: VITAL SIGNS: As above GENERAL: [Lying in bed, sleepy, confused] HEENT: [Pupils equal conjunctiva normal.] NECK: [Supple, no JVD] RESPIRATORY EFFORT:[ Normal] LUNGS: [Clear to auscultation, no wheezes rhonchi or crackles] CARDIOVASCULAR[ regular S1 and S2, no murmurs rubs or gallops, no edema] GI: [Abdomen soft, nontender, positive bowel sounds.] PSYCH: [Alert and oriented -1-2, as mentioned above disoriented to time and place but recognizes significant other, cooperative] NEURO: Moves all 4 extremities, no apparent focal deficits - Labs CBC & Chem 7: 10/20/16 07:00 10/20/16 07:00 Labs: Abnormal Lab Results - Last 24 Hours (Table) 10/20/16 10/21/16 Range/Units 21:01 17:03 POC Glucose (mg/dL) 71 L 73 L (75-99) mg/dL Assessment and Plan Plan: 1. [ Drug overdose on multiple drugs,]. 2. [ Toxic encephalopathy secondary to drug overdose on Seroquel and bupropion as well as acute alcohol abuse)]. 3. [ Depression]. 4. [ Hyperchloremia, improving]. Plan: Continue on current medication regime ,monitoring and symptomatic treatment. Maintain suicide precautions. Follow closely with both neurology and psychiatry. Patient to be discharged and transferred to mental health unit once more alert. Close monitoring of electrolytes with repeat labs ordered for a.m and significant other at bedside and updated on plan of care. The impression and plan of care has been dictated as directed. : I performed a H&P examination of this patient and discussed the same with the dictator. I agree with the dictator's note. Any additional findings/opinions/ etc. will be noted.
[2016-10-22] MEDS: ENOXAPARIN 40 MG/0.4 ML SYRINGE SQ SCH (09:17)
[2016-10-22] MEDS: PANTOPRAZOLE 40 MG/10 ML VIAL IVP SCH (09:17)
[2016-10-22] MEDS: NICOTINE 21MG/24HR PATCH TRANSDERM SCH ×2 (09:17→09:19)
--- NOTE | 2016-10-22 09:17 | P.CN ---
Psychiatric Consult - . Consult date: 10/22/16 Consult:: SUBJECTIVE: I reviewed the medical record and interviewed Ms. Clifton. Today, she was able to explain that she presented to Hospital because she took an overdose of medications. She alleged that she could not explain the reason for taking overdose and "does not remember her feelings" when she took the overdose. She talked about ongoing problems with her son and caring for his children. We talked about the severity of the overdose and I recommended to transfer to the psychiatric unit. She became quite distressed. She wished to be discharged from the medical unit and reestablish contact with her outpatient therapist at [facility]. I explained that due to the severity of her suicide attempt where recommending inpatient psychiatric treatment and that her would concur. OBJECTIVE: She presented as a casually groomed 56-year-old female who was sitting comfortably in bed. She made eye contact and tended to the interview. She had a blunted facial expression. She began crying as we discussed the suicide attempt and the recommendation for inpatient psychiatric treatment. She was alert and oriented to person, place and time. She showed slight psychomotor retardation but no abnormal involuntary movements. Her speech was spontaneous with normal rate, rhythm and volume. Her affect was depressed. She denied current suicidal ideation or wishes. She did not express ideas reference or paranoid ideation. Her thinking was concrete but her associations were coherent and logical. We completed the [facility] Orientation Memory and Concentration Test. Her total weighted error score was 4; in general, the higher the total weighted error score greater than cognitive impairment. She knew the month and year. She is able to estimate the time correctly within 1 hour actual time. She was able to register of memory phrase "Cj Cano, [address] [place] [id number]." She was able to count backwards from 20. She made one error when saying the months of the year in reverse order (starting with April). She made one year when when recalling the memory phrase after the destruction exercise was. ASSESSMENT: Her cognitive status is much improved from yesterday where she is fully alert and oriented. She is able to attend and concentrate. She minimizes severity of her suicide attempt and disagrees with our recommendations for inpatient psychiatric treatment. PLAN: Transferred to the psychiatric unit when medically stable. 10/22/16 09:09
[2016-10-22] MEDS: SODIUM CHLORIDE 0.45% 1,000 ML IV SCH ×2 (09:18→15:45)
[2016-10-22 09:43] LABS: Anion Gap 13 mmol/L; Blood Urea Nitrogen 11 mg/dL (7-17); Calcium 9.2 mg/dL (8.4-10.2); Carbon Dioxide 22 mmol/L (22-30); Chloride 106 mmol/L (98-107); Glucose 79 mg/dL (74-99); Non-African American GFR(MDRD) >60 (>60 ml/min/1.73 sqM); Potassium 4.4 mmol/L (3.5-5.1); Sodium 141 mmol/L (137-145)
[2016-10-22 09:44] LABS: Basophils % (A) 0 %; CH 26.3; CHCM 31.2; Eosinophils # (A) 0.1 k/uL (0-0.7); Eosinophils % (A) 2 %; HCT 40.7 % (34.0-46.0); HDW 2.15; HGB 12.9 gm/dL (11.4-16.0); Luc % (Auto) 2; Lymphocytes # (A) 1.1 k/uL (1.0-4.8); Lymphocytes % (A) 19 %; MCH 26.8 pg (25.0-35.0); MCHC 31.7 g/dL (31.0-37.0); MCV 84.8 fL (80.0-100.0); Mean Platelet Volume 6.6; Monocytes # (A) 0.3 k/uL (0-1.0); Monocytes % (A) 4 %; Neutrophils # (A) 4.3 k/uL (1.3-7.7); Neutrophils % (A) 73 %; RDW 13.8 % (11.5-15.5); WBC 5.9 k/uL (3.8-10.6); WBC (Perox) 6.06
--- NOTE | 2016-10-22 10:33 | P.PN ---
Subjective Principal diagnosis: Abnormal EKG This is a pleasant 56-year-old female patient with no prior cardiac history was admitted to the hospital with a change in mental status. The patient was admitted to the hospital after suicidal attempt using medications. The patient took Seroquel and her found an empty bottle at home. She had significant change in mental status which has been getting better over the last few days. Currently she still slightly confused. No symptoms of chest pain or discomfort or difficulty breathing. 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 She doesn't smoke though. We get involved in the care of the patient because of abnormal EKG. I reviewed the patient's EKG and that showed sinus rhythm with R BBB. I could not see any acute changes on the EKG. The QT interval seems to be within normal limits at this point. At this point, I am going to repeat the EKG today. If the EKG showed no changes compared to before the patient can be discharged home. Objective - Vital Signs Vital signs: Vital Signs Temp 98.8 F 10/22/16 07:00 Pulse 86 10/22/16 07:00 Resp 20 10/22/16 07:00 BP 122/79 10/22/16 07:00 Pulse Ox 94 L 10/22/16 07:00 Intake & Output 10/21/16 10/22/16 10/22/16 18:59 06:59 18:59 Intake Total 0 Output Total 750 1400 Balance -750 -1400 Intake: Oral 0 Output: Urine 750 1400 Other: Voiding Method Indwelling Catheter Indwelling Catheter # Voids 525 # Bowel Movements 0 - Constitutional General appearance: Present: no acute distress - Respiratory Respiratory: bilateral: CTA - Cardiovascular Rhythm: regular Heart sounds: normal: S1, S2 - Labs CBC & Chem 7: 10/22/16 08:48 10/22/16 08:48 Labs: Abnormal Lab Results - Last 24 Hours (Table) 10/21/16 Range/Units 17:03 POC Glucose (mg/dL) 73 L (75-99) mg/dL Assessment and Plan Plan: Assessment #1 suicidal attempt using Seroquel #2 change in mental status which has been better #3 significant history of smoking #4 depression Plan #1 repeat the EKG today #2 if the EKG showed no changes the patient can be discharged home
[2016-10-22 15:37] VITALS: BP 94/60; PULSE 89; TEMP 99.5
--- NOTE | 2016-10-22 19:15 | P.DS ---
Providers Date of admission: 10/19/16 06:55 Expected date of discharge: 10/22/16 Attending physician: Gillian Lancaster Consults: 10/19/16 06:55 Consult Physician Routine Consulting Provider: Cj Pat Consult Reason/Comments: Overdose Do you want consulting provider notified?: Yes 10/19/16 07:22 Consult Physician Urgent Consulting Provider: David Ewing Consult Reason/Comments: Overdose with mental status change Do you want consulting provider notified?: Already Contacted 10/20/16 10:29 Consult Physician Routine Consulting Provider: Francisca Simental Consult Reason/Comments: MENTAL STATUS CHANGE Do you want consulting provider notified?: Yes, Notify in am 10/20/16 18:42 Consult Physician Routine Consulting Provider: Jorge Rivera Consult Reason/Comments: EKG Changes post overdose Do you want consulting provider notified?: Yes Primary care physician: David Tamayomley [place] Hospital Course: Final Diagnoses: 1. [ Drug overdose on multiple drugs,]. 2. [ Toxic encephalopathy secondary to drug overdose on Seroquel and bupropion as well as acute alcohol abuse)]. 3. [ Depression]. 4. [ Hyperchloremia, improving]. Hospital course:This is a 56-year-old female admitted with toxic encephalopathy secondary to drug overdose on multiple drugs including Seroquel and bupropion, acute alcohol abuse and multiple other medical issues. Suicide precautions maintained with sitter at bedside. Gentle IV fluid hydration. Evaluated by cardiology, neurology & psychiatry. No seizure activity, no DTs. Cleared by all consults for discharge to mental health unit. Patient is being discharged to mental health unit in a stable condition with guarded prognosis. The impression and plan of care has been dictated as directed. : I performed a H&P examination of this patient and discussed the same with the dictator. I agree with the dictator's note. Any additional findings/opinions/ etc. will be noted. Patient Condition at Discharge: Serious Plan - Discharge Summary New Discharge Prescriptions: New Nicotine 21Mg/24Hr Patch [Habitrol] 1 patch TRANSDERM DAILY patch Pantoprazole Sodium [Protonix] 40 mg PO DAILY #1 tablet.dr Rodriguez Action Gabapentin [Neurontin] 600 mg PO TID Venlafaxine HCl ER [Effexor XR] 150 mg PO DAILY QUEtiapine [SEROquel] 100 mg PO HS Discharge Medication List Gabapentin [Neurontin] 600 mg PO TID 10/19/16 [History] QUEtiapine [SEROquel] 100 mg PO HS 10/19/16 [History] Venlafaxine HCl ER [Effexor XR] 150 mg PO DAILY 10/19/16 [History] Nicotine 21Mg/24Hr Patch [Habitrol] 1 patch TRANSDERM DAILY patch 10/22/16 [Rx] Pantoprazole Sodium [Protonix] 40 mg PO DAILY #1 tablet. 10/22/16 [Rx] Follow up Appointment(s)/Referral(s): Wili Lan MD [STAFF PHYSICIAN] - 3 Weeks Cj Pat MD [STAFF PHYSICIAN] - 10/22/16 David Albarran MD [Primary Care Provider] - 3 Days (After discharge from [facility]) Discharge Disposition: TRANSFER TO PSYCH HOSP/UNIT
[2016-10-23] MEDS ORDERED: PANTOPRAZOLE 40 MG TABLET PO SCH (07:30)
== END 2016-10-22 18:30 | DRG 917 ==
LOC: EC 01:03 → 6ICU 06:55 → 4MS4W 21:11
PROVIDERS: ADMIT Hospitalist; ATTEND Hospitalist
DX: T43.592A Poisoning by other antipsychotics and neuroleptics, intentional self-harm, initial encounter (principal); G92 Toxic encephalopathy; E87.8 Other disorders of electrolyte and fluid balance, not elsewhere classified; T43.292A Poisoning by other antidepressants, intentional self-harm, initial encounter; F10.129 Alcohol abuse with intoxication, unspecified; F17.200 Nicotine dependence, unspecified, uncomplicated; I45.10 Unspecified right bundle-branch block; F32.9 Major depressive disorder, single episode, unspecified; G89.29 Other chronic pain; M54.9 Dorsalgia, unspecified; Y90.7 Blood alcohol level of 200-239 mg/100 ml; Z91.5 Personal history of self-harm; Z79.899 Other long term (current) drug therapy; Z87.11 Personal history of peptic ulcer disease; Y92.009 Unspecified place in unspecified non-institutional (private) residence as the place of occurrence of the external cause
CPT/HCPCS: 36415; 51702; 70450; 71010; 80048; 80053; 80306; 80320; 81003; 83520; 83605; 83735; 84484; 85025; 93005; 94760; 95816; 96361; 96365; 96368; 99285

== ENCOUNTER 2016-10-22 17:59 | Inpatient (IN) | payer OTHER ==
[2016-10-22 19:06] VITALS: BMI 32.5
[2016-10-22] MEDS ORDERED: ACETAMINOPHEN TAB 325 MG TAB PO PRN (19:27)
[2016-10-22] MEDS ORDERED: LORazepam 1 MG TAB PO PRN (19:27)
[2016-10-22] MEDS ORDERED: MAGNESIUM HYDROXIDE 2,400 MG/10 ML CUP PO PRN (19:27)
[2016-10-22] MEDS ORDERED: MAG HYDROX/AL HYDROX/SIMETH 30 ML CUP PO PRN (19:27)
[2016-10-22] MEDS ORDERED: ZIPRASIDONE 20 MG VIAL IM PRN (19:27)
[2016-10-22] MEDS ORDERED: LORazepam 2 MG/ML SYRINGE IM PRN (19:29)
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
--- NOTE | 2016-10-23 23:15 | CONS ---
DATE OF CONSULTATION: REASON FOR CONSULTATION: Medical clearance. This patient is a 56-year-old who was discharged from my service yesterday after she was treated for Seroquel and Wellbutrin overdose. Patient is clinically doing well at this point of time. Patient denied any fever or chills. Patient denied any nausea, vomiting, abdominal pain. REVIEW OF SYSTEMS: CONSTITUTIONAL: No fever, no malaise, no fatigue. HEENT: No recent visual problems or hearing problems. Denied any sore throat. CARDIOVASCULAR: No chest pain, orthopnea, PND, no palpitations, no syncope. PULMONARY: No shortness of breath, no cough, no hemoptysis. GASTROINTESTINAL: No diarrhea, no nausea, no vomiting, no abdominal pain. Normoactive bowel sounds. NEUROLOGICAL: No headaches, no weakness, no numbness. HEMATOLOGICAL: Denies any bleeding or petechiae. GENITOURINARY: Denies any burning micturition, frequency, or urgency. MUSCULOSKELETAL/RHEUMATOLOGICAL: Denies any joint pain, swelling, or any muscle pain. ENDOCRINE: Denies any polyuria or polydipsia. The rest of the 14 point review of systems is negative. Patient present medications include: 1. Acetaminophen. 2. Lorazepam. 3. Magnesium oxide. Past medical history is significant for: 1. Chronic low back pain. 2. Adenoidectomy. 3. Back surgery. 4. Hernia repair. 5. Tonsillectomy. 6. Tubal ligation surgery. SOCIAL HISTORY: Patient smokes about 1 pack per day. Patient drinks one bottle of wine every day. Denied any drug abuse. ALLERGIES: NO KNOWN DRUG ALLERGIES. FAMILY HISTORY: Significant for congestive heart failure in the family and scarlet fever in the family. PHYSICAL EXAMINATION: VITAL SIGNS: Temperature 98.5, pulse of 73, respiratory rate of 18. Blood pressure is 126/70. Saturating at 94% on room air. GENERAL: The patient is alert and oriented x3, not in any acute distress. Well developed, well nourished. HEENT: Pupils are round and equally reacting to light. EOMI. No scleral icterus. No conjunctival pallor. Normocephalic, atraumatic. No pharyngeal erythema. No thyromegaly. CARDIOVASCULAR: S1 and S2 present. No murmurs, rubs, or gallops. PULMONARY: Chest is clear to auscultation, no wheezing or crackles. ABDOMEN: Soft, nontender, nondistended, normoactive bowel sounds. No palpable organomegaly. MUSCULOSKELETAL: No joint swelling or deformity. EXTREMITIES: No cyanosis, clubbing, or pedal edema. NEUROLOGICAL: Gross neurological examination did not reveal any focal deficits. SKIN: No rashes. TSH is within normal limits. ASSESSMENT AND PLAN: 1. Suicide attempt. 2. Depression. Management as per primary service. 3. Recent drug overdose. 4. Completely resolved hallucinations. No further intervention at this point of time. 5. Alcohol abuse without any withdrawals at this point of time. Counseling regarding that was provided. 6. Nicotine abuse. Counseling was provided. Will sign off at this point in time. No further recommendation from medical perspective.
--- NOTE | 2016-10-24 11:32 | P.PN ---
Progress Note - Text SUBJECTIVE: I reviewed the medical record, interviewed Ms. Pineda and discussed her treatment and treatment plan during team meeting. She denied problems or concerns other than wishing to be discharged. Specifically, she denied feeling depressed or having thoughts of or suicide. She agreed to continue with outpatient mental health treatment and also talked about attending Alcoholics Anonymous. She believes that she had an opiate use problem and when she stopped abusing Vicodin she began to abuse alcohol. She talked about having her hide the Vicodin and only dispense it to her as recommended by the physician because he was concerned about the her abuse of the medication. OBJECTIVE: She presented as a casually groomed 56-year-old female with long navarrete hair. She made eye contact and attended to the interview. She had a bright facial expression. She is alert and oriented to person, place and time. She showed no abnormality of psychomotor activity. She had no abnormal involuntary movements. Her speech was spontaneous with normal rate, rhythm and volume. Her affect was blunted but bright, stable and appropriate. She denied suicidal ideation or wishes. She denied homicidal ideation. She denied feeling hopeless, helpless or worthless. She did not express phobias, ideas reference, paranoid ideation or delusional thoughts. Her thinking was concrete but her associations were coherent and logical. She denied hallucinations and did not appear to be responding to internal stimuli. ASSESSMENT: I suspect that the suicide attempt was results of a combination of her alcohol use, family conflict and personality issues. Although she is denying feelings of depression and thoughts of or suicide, I'm concerned about discharging her today because her attempt was serious and potentially lethal. PLAN: Continue inpatient psychiatric hospitalization. Continued suicidal precautions with 15 minute checks. 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 Begin Celexa 10 mg daily for the prevention of a depressive recurrence. Encourage participation in therapeutic groups and activities. Evaluate clinical status response to treatment on a daily basis.
[2016-10-24] MEDS: CITALOPRAM HYDROBROMIDE 10 MG TAB PO SCH (20:56)
[2016-10-25 07:03] VITALS: RESP 16
--- NOTE | 2016-10-25 15:17 | P.PN ---
Progress Note - Text INTERVERAL HISTORY: Cross cover for weekend Patient admitted to the hospital for an overdose. Patient reports that she has adjusted to the unit, has recognized that it's the right place for her. States that this overdose was different from the previous 2, in that this 1 was very impulsive. States that she began drinking somewhere in May, drinking alone in the basement large amounts. Previous suicide attempts she had planned a month and advance has planned it gone to the hotel. This time she drank in the afternoon few hours later took the overdose of the Seroquel. She believes that it was the alcohol that caused this impulsivity. MENTAL STATUS EXAM: Alert and oriented 3, pleasant cooperative, good eye contact. Speech normal volume rate production. Coherent logical goal directed. No SUSU no FOI no delusions Denies auditory or visual hallucinations Mood neutral, affect full range decreased intensity Denies suicidal ideation. PLAN: Continue inpatient unit inpatient psychiatric hospitalization. Continue suicide precautions every 15 minute checks There is a planned family meeting for October 26. Continue Celexa 10 mg daily
[2016-10-25] MEDS: CITALOPRAM HYDROBROMIDE 10 MG TAB PO SCH (21:37)
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
[2016-10-26] MEDS: CITALOPRAM HYDROBROMIDE 10 MG TAB PO SCH (20:16)
[2016-10-27 07:09] VITALS: BP 120/57; PULSE 61; TEMP 98.3
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
== END 2016-10-27 14:15 | disposition home or self-care (01) | DRG 885 ==
LOC: 3MHU 18:33
PROVIDERS: ADMIT Psychiatry & Neurology Psychiatry; ATTEND Psychiatry & Neurology Psychiatry
DX: F33.41 Major depressive disorder, recurrent, in partial remission (principal); F10.19 Alcohol abuse with unspecified alcohol-induced disorder; R44.3 Hallucinations, unspecified; F11.21 Opioid dependence, in remission; T14.91 Suicide attempt; T43.292D Poisoning by other antidepressants, intentional self-harm, subsequent encounter; T43.592D Poisoning by other antipsychotics and neuroleptics, intentional self-harm, subsequent encounter; G89.29 Other chronic pain; M54.5 Low back pain; F17.200 Nicotine dependence, unspecified, uncomplicated; Z71.41 Alcohol abuse counseling and surveillance of alcoholic; Z71.6 Tobacco abuse counseling; Z91.5 Personal history of self-harm; Z82.49 Family history of ischemic heart disease and other diseases of the circulatory system; Z81.8 Family history of other mental and behavioral disorders; Z87.11 Personal history of peptic ulcer disease; Z79.899 Other long term (current) drug therapy; Z96.89 Presence of other specified functional implants; Z63.9 Problem related to primary support group, unspecified; Z91.410 Personal history of adult physical and sexual abuse; Z98.51 Tubal ligation status; Y92.009 Unspecified place in unspecified non-institutional (private) residence as the place of occurrence of the external cause
CPT/HCPCS: 84443

== ENCOUNTER → 2017-03-13 | Outpatient (CLI) | payer OTHER ==
--- NOTE | 2017-03-13 12:27 | MR ---
Thoracic MRI with and without contrast HISTORY: Chronic back pain Multiplanar multisequence and postcontrast imaging through the thoracic spine following 8.[address] IV. No comparisons Thoracic vertebral bodies show preserved height and alignment. There is multilevel spondylosis, endpl ate discogenic marrow signal change compatible with degenerative disc disease. Some mild loss of disc height and signal present at the mid to lower thoracic levels compatible disc desiccation and degene rative disc disease. Suspect laminectomy changes at T8, 9 and 10. Facet arthropathy changes are prese nt at T10-11, T11-12, T12-L1 causing posterior lateral mass effect on the thecal sac. There is no hig h-grade central canal stenosis or sizable disc herniation. Small posterior disc bulge at T7-8, T8-9 c auses slight anterior mass effect on the thecal sac. T11-12 shows posterior disc bulge causing anteri or mass effect on the thecal sac, mild central canal stenosis. Thoracic cord signal is maintained. There is no abnormal enhancement following contrast administration. IMPRESSION: Spinal stenosis is greatest at T11-12 due to facet arthropathy and broad-based posterior disc bulge. Only mild central stenosis however is noted. Postop changes. Degenerative disc disease.
== END | disposition home or self-care (01) ==
LOC: RADMRIMAIN 09:05
PROVIDERS: ATTEND Pediatrics
DX: M48.04 Spinal stenosis, thoracic region (principal); M51.24 Other intervertebral disc displacement, thoracic region; M51.34 Other intervertebral disc degeneration, thoracic region; M46.94 Unspecified inflammatory spondylopathy, thoracic region; Z98.890 Other specified postprocedural states
CPT/HCPCS: 72157; A9581

== ENCOUNTER 2017-11-30 12:20 | Emergency (ER) | payer OTHER, MEDICARE ==
[2017-11-30 13:09] VITALS: TEMP 100.1
[2017-11-30] MEDS ORDERED: MORPHINE SULFATE 2 MG/ML SYRINGE IV STA (13:35)
[2017-11-30] MEDS ORDERED: IOPAMIDOL-300 CONTRAST 30 ML VIAL (ORAL USE) PO PRN (13:35)
[2017-11-30] MEDS ORDERED: ONDANSETRON 4 MG/2 ML VIAL IVP STA (13:35)
[2017-11-30] MEDS ORDERED: PANTOPRAZOLE 40 MG/10 ML VIAL IVP STA (13:35)
[2017-11-30] MEDS ORDERED: SODIUM CHLORIDE 0.9% 1,000 ML IV STA ×2 (13:35)
--- NOTE | 2017-11-30 13:37 | ED ---
Nausea/Vomiting/Diarrhea HPI - General Chief complaint: Nausea/Vomiting/Diarrhea Stated complaint: Vomiting Time Seen by Provider: 11/30/17 13:22 Source: patient, RN notes reviewed, old records reviewed Mode of arrival: ambulatory Limitations: no limitations - History of Present Illness Initial comments: this patient's a 49-year-old female presents to emergency department today chief complaint of epigastric abdominal pain and vomiting. She has extensive surgical history including Elena-en-Y for gastric ulcer perforation in 2013. She also had a remnant stomach removed by Dr. Montgomery at [facility] in 2013. Patient reports that her pain at this time is feeling similar to her past obstruction in 2013. Patient reports that she had a stool on Thursday morning. She does report fever or chills. She has been having significant amount of vomiting. No hematemesis or melena. - Related Data Home Medications Medication Instructions Recorded Confirmed Citalopram Hydrobromide [CeleXA] 40 mg PO DAILY 11/30/17 11/30/17 Gabapentin [Neurontin] 600 mg PO TID 11/30/17 11/30/17 Previous Rx's Medication Instructions Recorded Ondansetron Odt [Zofran Odt] 4 mg PO Q8HR PRN #12 tab 11/30/17 Allergies Allergy/AdvReac Type Severity Reaction Status Date / Time No Known Allergies Allergy Verified 11/30/17 13:50 Review of Systems ROS Statement: Those systems with pertinent positive or pertinent negative responses have been documented in the HPI. ROS Other: All systems not noted in ROS Statement are negative. Past Medical History Additional Past Medical History / Comment(s): gastric ulcer, back pain History of Any Multi-Drug Resistant Organisms: None Reported Past Surgical History: Adenoidectomy, Back Surgery, Hernia Repair, Tonsillectomy , Tubal Ligation Additional Past Surgical History / Comment(s): Elena en Y for ulcer disease, nerve stimulator - since removed Past Anesthesia/Blood Transfusion Reactions: No Reported Reaction Past Psychological History: Depression Smoking Status: Current every day smoker Past Alcohol Use History: None Reported Past Drug Use History: Marijuana - Past Family History Mother Additional Family Medical History / Comment(s): scarlet fever Father Family Medical History: AICD/Pacemaker, Chest Pain / Angina, Congestive Heart Failure (CHF) General Exam - General Exam Comments Initial Comments: 49-year-old female. Alert and oriented. No significant distress. Limitations: no limitations Head exam: Present: atraumatic, normocephalic, normal inspection Eye exam: Present: normal appearance, PERRL, EOMI. Absent: scleral icterus, conjunctival injection, periorbital swelling ENT exam: Present: normal exam, mucous membranes moist Neck exam: Present: normal inspection. Absent: tenderness, meningismus, lymphadenopathy Respiratory exam: Present: normal lung sounds bilaterally Cardiovascular Exam: Present: regular rate, normal rhythm, normal heart sounds. Absent: systolic murmur, diastolic murmur, rubs, gallop, clicks GI/Abdominal exam: Present: soft, tenderness (left upper quadrant tenderness.), normal bowel sounds. Absent: distended, guarding, rebound, rigid Extremities exam: Present: normal inspection, full ROM, normal capillary refill. Absent: tenderness, pedal edema, joint swelling, calf tenderness Back exam: Present: normal inspection Neurological exam: Present: alert, oriented X3, CN II-XII intact Psychiatric exam: Present: normal affect, normal mood Skin exam: Present: warm, dry, intact, normal color. Absent: rash Course Vital Signs 11/30/17 11/30/17 13:05 16:00 Temperature 100.1 F H Pulse Rate 56 L 67 Respiratory 18 20 Rate Blood Pressure 144/88 146/75 O2 Sat by Pulse 96 99 Oximetry Medical Decision Making - Medical Decision Making 49-year-old female with a extensive surgical history of present the emergency department today complaining of some left-sided down pain nausea and vomiting. Was concerned for gastric obstruction. She did have a history of bariatric surgery posterior DC after a gastric ulcer perforation. This is an 2013. At this time patient's CT shows evidence of a large abdominal wall hernia however this is related to her previous surgeries in 2014 A [place] state. There were( show no obstructive changes. No small nodularity at the stomach which could be surgical material. Recommended follow-up. She also had some liquid stool in her colon. At this time patient's labwork was reviewed and unremarkable. She did tolerate crackers and water emergency department. Discussed most likely a viral illness causing her symptoms. She did have a mild elevation of her liver enzymes however bilirubin was normal. There is CT showed no abnormalities on her gallbladder. I discussed appropriate follow-up with her primary care physician as well as with antibiotics 2 days. We'll discharge her with prescription for Zofran. Patient is history plan will comply. Return parameters were discussed. - Lab Data Result diagrams: 11/30/17 13:54 11/30/17 13:54 Lab Results 11/30/17 11/30/17 11/30/17 Range/Units 13:54 13:54 13:54 WBC 7.8 (3.8-10.6) k/uL RBC 5.73 H (3.80-5.40) m/uL Hgb 13.9 (11.4-16.0) gm/dL Hct 43.7 (34.0-46.0) % MCV 76.2 L (80.0-100.0) fL MCH 24.2 L (25.0-35.0) pg MCHC 31.7 (31.0-37.0) g/dL RDW 14.5 (11.5-15.5) % Plt Count 282 (150-450) k/uL Neutrophils % 70 % Lymphocytes % 24 % Monocytes % 4 % Eosinophils % 1 % Basophils % 1 % Neutrophils # 5.4 (1.3-7.7) k/uL Lymphocytes # 1.8 (1.0-4.8) k/uL Monocytes # 0.3 (0-1.0) k/uL Eosinophils # 0.1 (0-0.7) k/uL Basophils # 0.0 (0-0.2) k/uL Microcytosis Slight PT 9.9 (9.0-12.0) sec INR 1.0 (<1.2) APTT 22.9 (22.0-30.0) sec Sodium 142 (137-145) mmol/L Potassium 4.3 (3.5-5.1) mmol/L Chloride 105 (98-107) mmol/L Carbon Dioxide 24 (22-30) mmol/L Anion Gap 13 mmol/L BUN 11 (7-17) mg/dL Creatinine 0.81 (0.52-1.04) mg/dL Est GFR (CKD-EPI)AfAm >90 (>60 ml/min/1.73 sqM) Est GFR (CKD-EPI)NonAf 81 (>60 ml/min/1.73 sqM) Glucose 95 (74-99) mg/dL Plasma Lactic Acid Rene (0.7-2.0) mmol/L Calcium 10.2 (8.4-10.2) mg/dL Total Bilirubin 0.7 (0.2-1.3) mg/dL AST 73 H (14-36) U/L ALT 160 H (9-52) U/L Alkaline Phosphatase 113 (38-126) U/L Total Protein 7.2 (6.3-8.2) g/dL Albumin 4.4 (3.5-5.0) g/dL Amylase 40 (30-110) U/L Lipase 60 (23-300) U/L Urine Color Urine Appearance (Clear) Urine pH (5.0-8.0) Urine Protein (Negative) Urine Glucose (UA) (Negative) Urine Ketones (Negative) Urine Blood (Negative) Urine Nitrite (Negative) Urine Bilirubin (Negative) Urine Urobilinogen (<2.0) mg/dL Ur Leukocyte Esterase (Negative) 11/30/17 11/30/17 Range/Units 13:54 16:16 WBC (3.8-10.6) k/uL RBC (3.80-5.40) m/uL Hgb (11.4-16.0) gm/dL Hct (34.0-46.0) % MCV (80.0-100.0) fL MCH (25.0-35.0) pg MCHC (31.0-37.0) g/dL RDW (11.5-15.5) % Plt Count (150-450) k/uL Neutrophils % % Lymphocytes % % Monocytes % % Eosinophils % % Basophils % % Neutrophils # (1.3-7.7) k/uL Lymphocytes # (1.0-4.8) k/uL Monocytes # (0-1.0) k/uL Eosinophils # (0-0.7) k/uL Basophils # (0-0.2) k/uL Microcytosis PT (9.0-12.0) sec INR (<1.2) APTT (22.0-30.0) sec Sodium (137-145) mmol/L Potassium (3.5-5.1) mmol/L Chloride (98-107) mmol/L Carbon Dioxide (22-30) mmol/L Anion Gap mmol/L BUN (7-17) mg/dL Creatinine (0.52-1.04) mg/dL Est GFR (CKD-EPI)AfAm (>60 ml/min/1.73 sqM) Est GFR (CKD-EPI)NonAf (>60 ml/min/1.73 sqM) Glucose (74-99) mg/dL Plasma Lactic Acid Rene 0.9 (0.7-2.0) mmol/L Calcium (8.4-10.2) mg/dL Total Bilirubin (0.2-1.3) mg/dL AST (14-36) U/L ALT (9-52) U/L Alkaline Phosphatase (38-126) U/L Total Protein (6.3-8.2) g/dL Albumin (3.5-5.0) g/dL Amylase (30-110) U/L Lipase (23-300) U/L Urine Color Yellow Urine Appearance Clear (Clear) Urine pH 6.0 (5.0-8.0) Urine Protein Negative (Negative) Urine Glucose (UA) Negative (Negative) Urine Ketones 1+ H (Negative) Urine Blood Negative (Negative) Urine Nitrite Negative (Negative) Urine Bilirubin Negative (Negative) Urine Urobilinogen 2.0 (<2.0) mg/dL Ur Leukocyte Esterase Negative (Negative) - Radiology Data Radiology results: report reviewed Ventral abdominal wall laxity and bulging along the supraumbilical region measuring 18 cm wide and 27 m chronic renal bulge associated with epigastric abdominal wall hernia anterior superior diaphragm. There is proximal jejunum in the patient's lives here is a short symmetry or skull. No obstructive changes. New 2 cm area of mural base nodularity along the right lateral proximal stomach. This is not the margin of some surgical material in could represent redundant gastric wall. 3 month follow-up recommended to exclude neoplastic cause of thickening. Some liquid stool in the right side of the colon could represent mild enteritis. Disposition Clinical Impression: Nausea and vomiting, Enteritis, Abdominal wall hernia Disposition: HOME SELF-CARE Condition: Good Instructions: Acute Nausea and Vomiting (ED) Additional Instructions: Patient has a follow-up with primary care physician. Use nausea medicine as directed. Return to the emergency department if any alarming signs or symptoms occur. Prescriptions: Ondansetron Odt [Zofran Odt] 4 mg PO Q8HR PRN #12 tab PRN Reason: Pain Is patient prescribed a controlled substance at d/c from ED?: No When asked, does pt state using other controlled substances?: No If prescribed controlled substance>3 days was MAPS reviewed?: No If opioid is for acute pain is fill amount 7 days or less?: No If Rx opioid, was Start Talking consent form obtained?: No Referrals: David Albarran MD [Primary Care Provider] - 1-2 days Time of Disposition: 16:32
[2017-11-30 14:24] LABS: Basophils % (A) 1 %; Eosinophils # (A) 0.1 k/uL (0-0.7); Eosinophils % (A) 1 %; HCT 43.7 % (34.0-46.0); HGB 13.9 gm/dL (11.4-16.0); Lymphocytes # (A) 1.8 k/uL (1.0-4.8); Lymphocytes % (A) 24 %; MCH 24.2 pg (25.0-35.0); MCHC 31.7 g/dL (31.0-37.0); MCV 76.2 fL (80.0-100.0); Mean Platelet Volume 6.6; Microcytosis Slight; Monocytes # (A) 0.3 k/uL (0-1.0); Monocytes % (A) 4 %; Neutrophils # (A) 5.4 k/uL (1.3-7.7); Neutrophils % (A) 70 %; Platelet Count 282 k/uL (150-450); RBC 5.73 m/uL (3.80-5.40); RDW 14.5 % (11.5-15.5); WBC 7.8 k/uL (3.8-10.6)
[2017-11-30 14:37] LABS: ALT 160 U/L (9-52); AST 73 U/L (14-36); Albumin 4.4 g/dL (3.5-5.0); Alkaline Phosphatase 113 U/L (38-126); Amylase 40 U/L (30-110); Anion Gap 13 mmol/L; Blood Urea Nitrogen 11 mg/dL (7-17); Calcium 10.2 mg/dL (8.4-10.2); Carbon Dioxide 24 mmol/L (22-30); Chloride 105 mmol/L (98-107); Glucose 95 mg/dL (74-99); Lipase 60 U/L (23-300); Potassium 4.3 mmol/L (3.5-5.1); Sodium 142 mmol/L (137-145); Total Bilirubin 0.7 mg/dL (0.2-1.3); Total Protein 7.2 g/dL (6.3-8.2)
[2017-11-30 14:44] LABS: Partial Thromboplastin Time 22.9 sec (22.0-30.0); Prothrombin Time 9.9 sec (9.0-12.0)
--- NOTE | 2017-11-30 15:30 | CT ---
EXAMINATION TYPE: CT abdomen pelvis w con DATE OF EXAM: 11/30/2017 COMPARISON: 10/23/2013 and 03/31/2013 HISTORY: 57-year-old female with abdominal pain and vomiting x3 days. TECHNIQUE: Contiguous axial scanning of the abdomen and pelvis following administration of 100 ml Iso liu 300 IV contrast. Delayed images through the kidneys and coronal/sagittal reconstructions perform ed. CT DLP: 1828 mGycm Automated exposure control for dose reduction was used. FINDINGS: Heart upper limits of normal in size without pericardial effusion. Lung bases clear without pleural e ffusion. No focal liver lesion or biliary ductal dilatation. Portal venous system is patent. Gallbladder, adrenal glands, kidneys, spleen, and atrophic pancreas show no gross abnormal. Postsurgical changes of distal gastric resection and gastrojejunostomy. Proximal jejunum extends into a ventral epigastric hernia located anterior and superior to the diaphragm is mildly distended at 3. 3 cm but no clear transition point is identified. Short segment of mid transverse colon also extends into this herniation. There is ventral abdominal wall bulging laxity measuring 18.9 cm wide and 20.7 cm craniocaudal. There is a 2.0 cm area of nodularity along the right lateral proximal stomach at the margin of some s uture material, axial image 23 which is new from 03/31/2013. Uncertain if this represents redundant ga stric wall at the surgical margin. A few prominent upper abdominal mesenteric lymph nodes measure 7 mm, axial image 33. No other mesente skyler or retroperitoneal lymphadenopathy seen. There is mild with stool seen in the right hemicolon. No pericolonic inflammatory change. Bladder partially distended. Uterus and ovaries are visualized. Stable probable exophytic, partially calcified fibroid right lateral lower uterine segment measuring 4.1 cm. No abnormal fluid collection in the pelvis or pelvic lymphadenopathy. Bones: Degenerative changes at the right hip and degenerative disc disease L5-S1 with facet arthropat hy mid to lower lumbar spine. Additional degenerative disc disease lower thoracic spine. IMPRESSION: 1. NEW ( COMPARED TO 10/23/2013) VENTRAL ABDOMINAL WALL LAXITY AND BULGING ALONG THE SUPRAUMBILICAL R EGION MEASURING 18.9 CM WIDE AND 20.7 CM CRANIOCAUDAL. THE BULGE IS ASSOCIATED WITH AN EPIGASTRIC ABD OMINAL WALL HERNIA EXTENDING ANTERIOR AND SUPERIOR TO THE DIAPHRAGM BY 2.8 CM. THE PROXIMAL JEJUNUM O F THE PATIENT'S GASTROJEJUNOSTOMY LOOPS INTO HERE DOES A SHORT SEGMENT OF TRANSVERSE COLON. NO OBS TRUCTIVE CHANGES. 2. NEW 2.0 CM AREA OF MURAL-BASED NODULARITY ALONG THE RIGHT LATERAL PROXIMAL STOMACH. THIS IS AT THE MARGIN OF SOME SURGICAL MATERIAL AND COULD REPRESENT REDUNDANT GASTRIC WALL. 3 MONTH FOLLOW-UP RECOM MENDED TO EXCLUDE A NEOPLASTIC CAUSE OF THICKENING. 3. SOME LIQUID STOOL IN THE RIGHT SIDE OF THE COLON COULD REPRESENT MILD ENTERITIS.
[2017-11-30 16:11] VITALS: BP 146/75; PULSE 67; RESP 20
[2017-11-30 16:22] LABS: Appearance,Urine Clear (Clear); Bilirubin,Urine Negative (Negative); Blood,Urine Negative (Negative); Color,Urine Yellow; Glucose,Urine (UA) Negative (Negative); Ketones,Urine 1+ (Negative); Leukocyte Esterase,Urine Negative (Negative); Nitrite,Urine Negative (Negative); Protein,Urine Negative (Negative)
[2017-11-30 16:43] LABS: Hyaline Casts,Urine 5 /lpf (0-2); Mucus,Urine Rare /hpf; RBC,Urine <1 /hpf (0-5); WBC,Urine 1 /hpf (0-5)
[2017-11-30 16:45] LABS: Specific Gravity,Urine >1.050 (1.001-1.035)
== END 2017-11-30 16:50 | disposition home or self-care (01) ==
LOC: EC 12:20
DX: K52.9 Noninfective gastroenteritis and colitis, unspecified (principal); K43.9 Ventral hernia without obstruction or gangrene; R11.2 Nausea with vomiting, unspecified; F32.9 Major depressive disorder, single episode, unspecified; F17.200 Nicotine dependence, unspecified, uncomplicated; Z87.19 Personal history of other diseases of the digestive system; Z98.84 Bariatric surgery status; Z98.51 Tubal ligation status; Z98.890 Other specified postprocedural states; Z79.899 Other long term (current) drug therapy
CPT/HCPCS: 36415; 80053; 82150; 83605; 83690; 85025; 85610; 85730; 81003; 87040; 74177; 99284; 96374; 96375 ×2; 96361 ×2; J2405; J2270; C9113; Q9967

== ENCOUNTER 2018-01-22 10:24 | Day surgery (SDC) | payer MEDICARE, OTHER ==
[2018-01-21 08:20] VITALS: BMI 33.8
[2018-01-22 10:38] VITALS: RESP 16; TEMP 97.4
[2018-01-22] MEDS: LACTATED RINGERS 1,000 ML IV SCH ×2 (10:43→11:15)
[2018-01-22] MEDS ORDERED: PROPOFOL 10 MG/ML 20 ML VIAL IV ONE (11:15)
--- NOTE | 2018-01-22 11:36 | P.PCN ---
Date of Procedure: 01/22/18 Procedure(s) Performed: BRIEF HISTORY: Patient is a 57-year-old, pleasant, white female, scheduled for an upper endoscopy as a part of evaluation of epigastric pain associated with intermittent episodes of nausea vomiting for the last several months duration. Patient had multiple gastric surgeries done over the last 5 years. She had expert of laparotomy in 2012 for perforated peptic ulcer disease, dictated with an abscess. Few months later she had partial gastrectomy with gastrojejunostomy done. 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 However for the last 2 months having nausea vomiting and epigastric discomfort is worse after eating and weight loss of 15 pounds. She is hence scheduled for an upper endoscopy to evaluate further. She had a CT of abdomen done that showed a ventral hernia and was seen by Dr. Montgomery at [facility] and recommended a ventral hernia repair. PROCEDURE PERFORMED: Esophagogastroduodenoscopy with dilation. PREOPERATIVE DIAGNOSIS: Epigastric pain, nausea/vomiting of 2 months duration. IV sedation per anesthesia. PROCEDURE: After informed consent was obtained, the patient was brought into the endoscopy unit. IV sedation was administered by Anesthesia under continuous monitoring. Initially the Olympus GIF-140 video endoscope was inserted into the mouth. Esophagus intubated without any difficulty. It was gradually advanced into the stomach. The gastric remnant appeared normal. The gastrojejunal anastomosis however was very narrowed. There was small amount of retained food in the stomach. At the GJ anastomosis there were 2 small openings each measuring about 5-6 m in size adjacent to each other and the scope could not be advanced through this area. At this time proceed with a balloon dilation using a balloon pyloric balloon 8-10 mm TTS for total of 60 seconds. Following this I still was not able to advance the scope into the jejunum. The mucosa of the gastric remnant appeared normal. The scope was then withdrawn into the esophagus. The GE junction was located at 39 cm from the incisors. Small hiatal hernia noted. The esophagus appeared normal. There were no erosions or ulcerations seen and the patient tolerated the procedure well. IMPRESSION: 1. Anastomotic stricture at the gastrojejunal anastomosis status post balloon dilation using 8-10 mm TTS balloon as described above. 2. Small amount of retained food in the stomach. RECOMMENDATIONS: The findings of this examination were discussed with the patient as well as a family. She was advised to remain on clear liquid diet today and continue with small frequent meals. It appears that her symptoms are related to the anastomotic stricture at this time. She was advised to discuss this with Dr. Montgomery at [facility] during the next visit in 2 weeks. She will be seen in office in a month.
[2018-01-22 11:58] VITALS: BP 110/75; PULSE 55
== END 2018-01-22 12:22 | disposition home or self-care (01) ==
LOC: ORWHC2ENDO 10:24
PROVIDERS: ATTEND Internal Medicine Gastroenterology
DX: K31.89 Other diseases of stomach and duodenum (principal); Z98.0 Intestinal bypass and anastomosis status; K44.9 Diaphragmatic hernia without obstruction or gangrene; Z90.3 Acquired absence of stomach [part of]; Z87.19 Personal history of other diseases of the digestive system; R63.4 Abnormal weight loss; E66.9 Obesity, unspecified; Z68.33 Body mass index [BMI] 33.0-33.9, adult; Z79.899 Other long term (current) drug therapy
CPT/HCPCS: 43245; J2704; C1726

== ENCOUNTER → 2018-07-26 | Outpatient (CLI) | payer OTHER ==
--- NOTE | 2018-07-27 12:14 | ECHOF ---
Referral Reason:R01.1 Cardiac Murmur MEASUREMENTS -------- HEIGHT: 157.5 cm WEIGHT: 74.8 kg BP: RVIDd: 3.3 cm (< 3.3) IVSd: 1.5 cm (0.6 - 1.1) LVIDd: 3.8 cm (3.9 - 5.3) LVPWd: 1.4 cm (0.6 - 1.1) IVSs: 2.0 cm LVIDs: 2.7 cm LVPWs: 1.7 cm LA Diam: 3.7 cm (2.7 - 3.8) LAESV Index (A-L): 23.97 ml/m Ao Diam: 3.1 cm (2.0 - 3.7) AV Cusp: 2.0 cm (1.5 - 2.6) MV EXCURSION: 14.577 mm (> 18.000) MV EF SLOPE: 85 mm/s (70 - 150) EPSS: 0.5 cm MV E Marlon: 1.00 m/s MV DecT: 175 ms MV A Marlon: 0.73 m/s MV E/A Ratio: 1.37 RAP: 5.00 mmHg RVSP: 32.12 mmHg FINDINGS -------- Sinus rhythm. This was a technically adequate study. The left ventricular size is normal. There is moderate concentric left ventricular hypertrophy. O verall left ventricular systolic function is normal with, an EF between 55 - 60 %. The right ventricle is mildly enlarged. Normal LA size by volume 22+/-6 ml/m2. The right atrium is normal in size. The aortic valve is trileaflet, and appears structurally normal. No aortic stenosis or regurgitation. The mitral valve is normal. There is trace mitral regurgitation. Mild tricuspid regurgitation present. Right ventricular systolic pressure is normal at < 35 mmHg. There is no evidence of pulmonary hypertension. Trace/mild (physiologic) pulmonic regurgitation. The aortic root size is normal. Normal inferior vena cava with normal inspiratory collapse consistent with estimated right atrial pre ssure of 5 mmHg. There is no pericardial effusion. CONCLUSIONS -------- 1. Sinus rhythm. 2. This was a technically adequate study. 3. The left ventricular size is normal. 4. There is moderate concentric left ventricular hypertrophy. 5. Overall left ventricular systolic function is normal with, an EF between 55 - 60 %. 6. The right ventricle is mildly enlarged. 7. Normal LA size by volume 22+/-6 ml/m2. 8. The aortic valve is trileaflet, and appears structurally normal. No aortic stenosis or regurgitati on. 9. There is trace mitral regurgitation. 10. Mild tricuspid regurgitation present. 11. Right ventricular systolic pressure is normal at < 35 mmHg. 12. Trace/mild (physiologic) pulmonic regurgitation. 13. The aortic root size is normal. 14. Normal inferior vena cava with normal inspiratory collapse consistent with estimated right atrial pressure of 5 mmHg. 15. There is no pericardial effusion. RESIDENTIAL SALES CONSULTANT: Lizzie Sparks RDCS
== END | disposition home or self-care (01) ==
LOC: RADECHMAIN 16:11
PROVIDERS: ATTEND Pediatrics
DX: I07.1 Rheumatic tricuspid insufficiency (principal)
CPT/HCPCS: 93306

== ENCOUNTER 2020-03-07 09:15 | Day surgery (SDC) | payer OTHER ==
[2020-03-05 09:27] VITALS: BMI 30.2
[~2020-03-07 09:15] MED LIST: LACTATED RINGERS 1,000 ML IV SCH; LIDOCAINE 1% (10MG/ML) FOR IV START INTRADERMA PRN
[2020-03-07 09:43] VITALS: TEMP 97.8
[2020-03-07] MEDS ORDERED: PROPOFOL 10 MG/ML 20 ML VIAL IV ONE (10:38)
--- NOTE | 2020-03-07 10:59 | P.PCN ---
Date of Procedure: 03/07/20 Procedure(s) Performed: BRIEF HISTORY: Patient is a 59-year-old pleasant white female scheduled for an elective colonoscopy as a part of screening for colorectal neoplasia. PROCEDURE PERFORMED: Colonoscopywith biopsy. PREOPERATIVE DIAGNOSIS: screening for colon cancer. IV sedation per Anesthesia. PROCEDURE: After informed consent was obtained, the patient, was brought into the endoscopy unit. IV sedation was administered by Anesthesia under continuous monitoring. Digital rectal examination was normal. Initially the Olympus CF-160 flexible video colonoscope was then inserted in the rectum, gradually advanced into the cecum without any difficulty. Careful examination was performed as the scope was gradually being withdrawn. Ileocecal valve and the appendiceal orifice were visualized and appeared normal. Prep was fair. Mucosa of the cecum, ascending colon, transverse colon, descending colon,appeared normal. In the sigmoid colon there was a 3-4 mm polyp that was removed by cold biopsy. Rest of the sigmoid colon, and rectum appeared normal. Retroflexion was performed in the rectum and no lesions were seen. The patient tolerated the procedure well. IMPRESSION: 3-4 mm;Sigmoid polyp status post removal by cold biopsy Rest of the colon appeared normal RECOMMENDATIONS: Findings of this examination were discussed with the patient as well as her family. She was advised to follow with the biopsy results. If the biopsy shows an adenoma she can have a repeat colonoscopy in 5
[2020-03-07 11:20] VITALS: BP 128/78; PULSE 56; RESP 16
== END 2020-03-07 11:50 | disposition home or self-care (01) ==
LOC: ORWHC2ENDO 09:15
PROVIDERS: ATTEND Internal Medicine Gastroenterology
DX: Z12.11 Encounter for screening for malignant neoplasm of colon (principal); D12.5 Benign neoplasm of sigmoid colon; F32.9 Major depressive disorder, single episode, unspecified; F41.9 Anxiety disorder, unspecified; Z98.51 Tubal ligation status; F17.210 Nicotine dependence, cigarettes, uncomplicated; Z98.890 Other specified postprocedural states; Z98.891 History of uterine scar from previous surgery; Z79.899 Other long term (current) drug therapy
CPT/HCPCS: 88305; 45380; J2704

== ENCOUNTER → 2020-03-09 | Outpatient (CLI) | payer OTHER ==
--- NOTE | 2020-03-09 13:08 | XR ---
EXAM TYPE: LUMBAR SPINE X RAY SERIES COMPARISON: NONE HISTORY: Pain TECHNIQUE: 4 views are submitted. FINDINGS: There is diffuse osteopenia with multilevel degenerative disc disease and severe changes at L4-5 and L5-S1 with facet arthropathy. Age-indeterminate superior endplate compression deformity of L1. Slight anterolisthesis of L4 on L5. Pedicles intact. IMPRESSION: 1. Diffuse osteopenia with curvature of the spine and multilevel severe degenerative disc disease mos t marked at L5-S1. 2. Slight anterolisthesis L4 on L5. 3. Multilevel severe facet arthropathy.
--- NOTE | 2020-03-09 13:09 | XR ---
EXAMINATION TYPE: XR thoracic spine 2V DATE OF EXAM: 03/09/2020 COMPARISON: NONE HISTORY: Pain TECHNIQUE: 3 views submitted FINDINGS: Alignment is anatomic. There is no compression deformities. Multilevel hypertrophic and degenerative change of the thoracic spine. Pedicles intact. No compression deformities. IMPRESSION: 1. Multilevel mild to moderate degenerative disc disease.
== END | disposition home or self-care (01) ==
LOC: RADXRMAIN 12:33
PROVIDERS: ATTEND Pediatrics
DX: M54.9 Dorsalgia, unspecified (principal); M85.80 Other specified disorders of bone density and structure, unspecified site; M51.37 Other intervertebral disc degeneration, lumbosacral region; M43.16 Spondylolisthesis, lumbar region; M47.896 Other spondylosis, lumbar region
CPT/HCPCS: 72070; 72110

== ENCOUNTER → 2021-10-19 | Outpatient (CLI) | payer MEDICARE ==
--- NOTE | 2021-10-19 17:30 | MR ---
EXAMINATION TYPE: MR brain wo con DATE OF EXAM: 10/19/2021 COMPARISON: None HISTORY: Forgetfulness. Multiplanar multiecho imaging of the brain without contrast. Ventricles have normal size. There is no mass effect or midline shift. No sign of intracranial hemorr hong. Corpus callosum is intact. Brainstem is intact. Diffusion images show no evidence of an acute i nfarct. Brainstem is intact. On the T2 and FLAIR images there are some scattered white matter high signal foci at the navarrete-white m atter junction both cerebral hemispheres. Some of the lesions are also adjacent to the ventricles. To megha number is approximately 20 and most of these measure less than 5 mm. Solid turcica appears normal. No evidence of orbital mass. No evidence of posterior fossa mass. IMPRESSION: White matter high signal foci are nonspecific and could relate to microvascular ischemia or demyelina ting disease. No evidence of cortical infarct.
== END | disposition home or self-care (01) ==
LOC: RADMRIMAIN 12:02
PROVIDERS: ATTEND Physician Assistant
DX: R46.89 Other symptoms and signs involving appearance and behavior (principal)
CPT/HCPCS: 70551

== ENCOUNTER → 2021-10-19 | Outpatient (CLI) | payer MEDICARE ==
[2021-10-19 12:27] LABS: Appearance,Urine Cloudy (Clear); Bilirubin,Urine Negative (Negative); Blood,Urine Negative (Negative); Color,Urine Yellow; Glucose,Urine (UA) Negative (Negative); Hyaline Casts,Urine 1 /lpf (0-2); Ketones,Urine Negative (Negative); Leukocyte Esterase,Urine Small (Negative); Mucus,Urine Many /hpf; Nitrite,Urine Negative (Negative); Protein,Urine Trace (Negative); RBC,Urine 2 /hpf (0-5); Specific Gravity,Urine 1.023 (1.001-1.035); Squamous Epithelial Cell,Urine 5 /hpf (0-4); WBC,Urine 3 /hpf (0-5)
[2021-10-19 23:11] LABS: Basophils # (A) 0.06 X 10*3/uL (0.00-0.10); Basophils % (A) 0.7 %; Eosinophils # (A) 0.26 X 10*3/uL (0.04-0.35); Eosinophils % (A) 3.1 %; HCT 40.2 % (37.2-46.3); Immature Grans, Automated 0.2 %; Lymphocytes # (A) 1.92 X 10*3/uL (0.90-5.00); MCH 24.1 pg (27.0-32.0); MCHC 29.9 g/dL (32.0-37.0); MCV 80.7 fL (80.0-97.0); Mean Platelet Volume 9.9 fL (9.5-12.2); Monocytes # (A) 0.49 X 10*3/uL (0.20-1.00); Monocytes % (A) 5.9 %; NRBC Per 100 WBC 0 /100 WBCS (0.0-0.0); Neutrophils % (A) 67.1 %; Platelet Count 294 X 10*3/uL (140-440); RBC 4.98 X 10*6/uL (4.10-5.20); RDW 15.3 % (11.5-14.5); WBC 8.35 X 10*3/uL (4.50-10.00)
[2021-10-20 00:40] LABS: ALT 12 U/L (8-44); AST 18 U/L (13-35); African American GFR (CKD) 84.2 (60.0-200.0); Albumin 4.1 g/dL (3.8-4.9); Alkaline Phosphatase 164 U/L (41-126); BUN/Creat Ratio 14.22 Ratio (12.00-20.00); Blood Urea Nitrogen 12.2 mg/dL (9.0-27.0); Calcium 9.4 mg/dL (8.7-10.3); Carbon Dioxide 28.1 mmol/L (20.0-27.5); Chloride 107 mmol/L (96-109); Globulin 2.5 g/dL (1.6-3.3); Glucose 90 mg/dL (70-110); Non-African American GFR(CKD) 72.6 (60.0-200.0); Potassium 4.5 mmol/L (3.5-5.5); Sodium 141 mmol/L (135-145); Total Bilirubin <0.15 mg/dL (0.30-1.20); Total Protein 6.6 g/dL (6.2-8.2)
[2021-10-20 18:40] LABS: Urine Alcohol Negative (Negative); Urine Barbiturate Negative (Negative); Urine Cocaine Negative (Negative); Urine Methadone Negative (Negative); Urine Opiates Negative (Negative); Urine Phencyclidine Negative (Negative)
== END | disposition home or self-care (01) ==
LOC: LABWHC1 11:34
PROVIDERS: ATTEND Physician Assistant
DX: R46.89 Other symptoms and signs involving appearance and behavior (principal)
CPT/HCPCS: 36415; 80053; 80306; 81001; 82306; 84439; 84443; 85025

== ENCOUNTER → 2022-01-06 | Outpatient (CLI) | payer MEDICARE ==
--- NOTE | 2022-01-07 03:15 | MR ---
EXAMINATION TYPE: MR cervical spine wo con DATE OF EXAM: 01/06/2022 COMPARISON: None HISTORY: Neck and left side pain, decreased reflexes, tingling in fingers Multiplanar multi echo imaging of the lumbar spine without contrast. The cervical vertebra have normal alignment. There is posterior mild disc bulging at C3-4. Disc space s are fairly normal. No compression fracture. Cervical spinal cord has normal signal pattern. No fartun a. No cervical spinal stenosis. The brainstem is intact. No focal bone destruction. There is no cervical paraspinal mass. IMPRESSION: Minimal disc bulging posteriorly at C3-4. No spinal stenosis. Otherwise negative exam.
== END | disposition home or self-care (01) ==
LOC: RADMRIMAIN 09:26
PROVIDERS: ATTEND Psychiatry & Neurology Neurology
DX: M50.03 Cervical disc disorder with myelopathy, cervicothoracic region (principal)
CPT/HCPCS: 72141

== ENCOUNTER → 2022-01-06 | Outpatient (CLI) | payer MEDICARE ==
--- NOTE | 2022-01-07 03:30 | MR ---
EXAMINATION TYPE: MR lumbar spine wo con DATE OF EXAM: 01/06/2022 COMPARISON: 10/31/2015 HISTORY: Low back pain into left leg Multiplanar multiecho imaging of the lumbar spine with no contrast. The lumbar vertebrae have fairly normal alignment. There is some degenerative disc space narrowing fr om L3 to S1. There is mild posterior disc bulging at L2-3 and L3-4. No significant spinal stenosis. L umbar nerve roots appear fairly normal. There is multilevel lumbar neural foraminal narrowing due to small neural foramina. No focal bone destruction. There is 15% depression of the superior endplate of L1 vertebra without edema. This is consistent with an old compression fracture. There is no lumbar p araspinal mass. Sacroiliac joints are intact. There is sacral cyst at the S3 level on the right side. IMPRESSION: There are some spondylotic changes in the lumbar spine. There is old mild L1 compression fracture. No acute fracture seen. There is narrowing of the lumbar neural foramina due to developmentally small n euroforamen. The L1 fracture has occurred since the last MR scan
== END | disposition home or self-care (01) ==
LOC: RADMRIMAIN 09:25
PROVIDERS: ATTEND Orthopaedic Surgery
DX: S32.019A Unspecified fracture of first lumbar vertebra, initial encounter for closed fracture (principal); X58.XXXA Exposure to other specified factors, initial encounter
CPT/HCPCS: 72148